=== PATIENT | female | born 1970 | race Caucasian/White ===

== ENCOUNTER 2021-02-13 15:13 | Emergency (ER) | payer OTHER, SELFPAY ==
--- NOTE | 2021-02-13 15:20 | ED.SKABFB ---
HPI - Skin/Abscess/Foreign Bdy General Chief complaint: Wound/Laceration Stated complaint: spider bite Time Seen by Provider: 02/13/21 15:20 Source: patient and RN notes reviewed Mode of arrival: ambulatory Limitations: no limitations History of Present Illness HPI narrative: 50-year-old female presents to the [facility] with pain and swelling to the dorsal aspect left ring finger. States she woke up yesterday morning with redness and pain, believes she was bit by a spider or some type of insect. Has full range of motion. Capillary refill under 2 seconds Related Data Allergies Allergy/AdvReac Type Severity Reaction Status Date / Time No Known Allergies Allergy Unknown Verified 07/02/19 11:41 No Known Allergies Allergy Uncoded 07/02/19 11:41 Review of Systems Review of Systems: All systems reviewed & are unremarkable except as noted in HPI and below Constitutional: Constitutional: Reports no additional constitutional complaints, Denies chills and Denies fever(s) Cardiovascular: Cardiovascular: Reports no additional cardiovascular complaints and Denies chest pain Respiratory: Respiratory: Reports no additional respiratory complaints, Denies cough and Denies dyspnea Musculoskeletal: Musculoskeletal: Reports as per HPI Comments: Left hand ring finger, tightness, has full range of motion. Sensation intact distal to infection with capillary refill under 2 seconds Integumentary/Breasts: Skin/Breast: Reports as per HPI, Reports erythema (Fourth finger left hand) and Denies rash Neurologic: Reports system reviewed and no additional complaints, except as documented, Denies dizziness, Denies headache(s), Denies focal weakness and Denies numbness Psychiatric: Psychiatric: Reports no additional psychiatric complaints PMFSH Comments At the time of my signature, I reviewed and agree with the nursing past medical, surgical, social, and family history. There is no relevant family history pertinent to the patient complaint. Exam Const: General: healthy appearing, no acute distress and alert Nutritional Appearance: well nourished Orientation/consciousness: patient oriented x3 Limitations: no limitations HENMT: Head: normal to inspection Chest: Chest palpation & inspection: normal inspection of the chest Resp: Effort & Inspection: normal respiratory effort and no use of accessory muscles Auscultation: clear to auscultation bilaterally, no crackles, no rales, no rhonchi and no wheezes Cardio: Rate: regular rate Rhythm: regular rhythm Back/Spine/Pelvis: Back: no CVA tenderness Neuro: General: patient oriented x3, moves all extremities, no meningeal signs and no focal motor deficits Speech: normal speech Gait exam (Neuro): Normal gait present Extrem: General: normal to inspection Hand/finger images: 1. Redness, swelling noted. Fluctuant center. Has full range of motion of the PIP and DIP joint. Capillary refill under 2 seconds. Psych: Appearance: grossly normal and well kempt Mental Status: mental status grossly normal Affect: normal affect Attitude: cooperative Course Course Emergency Course: Discharge instructions reviewed with patient, as well as provided in writing per nursing staff. The instructions also include specific and strict return/GO TO THE ER as well as f/u information. All questions have been answered, and the patient deny any further questions with discharge and discharge plan. Vital Signs Vital signs: Vital Signs Temperature 98.7 F 02/13/21 15:22 Pulse Rate 81 02/13/21 15:22 Respiratory Rate 16 02/13/21 15:22 Blood Pressure 161/102 H 02/13/21 15:22 Pulse Oximetry 100 02/13/21 15:22 Temperature 98.7 F 02/13/21 15:22 Pulse Rate 81 02/13/21 15:22 Respiratory Rate 16 02/13/21 15:22 Blood Pressure 161/102 H 02/13/21 15:22 Pulse Oximetry 100 02/13/21 15:22 Reviewed MDM - Skin/Abscess/Foreign Bdy Differential Diagnosis Differential diagnosis: Likely abscess
[2021-02-13 15:22] VITALS: BP 161/102; PULSE 81; RESP 16; TEMP 37.1; O2SAT 100
== END 2021-02-13 16:07 | disposition home or self-care (01) ==
PROVIDERS: Emergency Provider Nurse Practitioner; PCP Internal Medicine Gastroenterology
DX: L02.512 Cutaneous abscess of left hand (principal)
CPT/HCPCS: 26010; 87070; 87075; 87147; 87186; 87205; 99213; G0463

== ENCOUNTER 2021-02-15 13:54 | Emergency (ER) | payer OTHER, SELFPAY ==
--- NOTE | 2021-02-15 13:58 | PC.NURSE ---
pt states waiting room looks really full. I will come back later. Informed risks of leaving without being seen by MD. Verbalizes understanding.
== END 2021-02-15 14:00 | disposition left against medical advice (07) ==
PROVIDERS: PCP Internal Medicine Gastroenterology
DX: Z53.21 Procedure and treatment not carried out due to patient leaving prior to being seen by health care provider (principal)
CPT/HCPCS: 99199

== ENCOUNTER 2021-05-08 16:40 | Emergency (ER) | payer OTHER, SELFPAY ==
[2021-05-08] VITALS (8 sets, daily range): BP systolic 116–151; BP diastolic 70–105; PULSE 87–116; RESP 17–33; TEMP 36.2–36.8; O2SAT 95–100
--- NOTE | ~2021-05-08 | XR_ITS ---
EXAMINATION: XR chest 2V DATE: 05/08/2021 19:39 INDICATION: Shortness of breath. COVID-19 pneumonia. TECHNIQUE: Frontal and lateral views of the chest were obtained. COMPARISON: Chest 2 views 10/24/2018, CT abdomen and pelvis 06/12/2018 FINDINGS: There are patchy airspace opacities in the mid and lower lung zones. No pleural effusion or pneumothorax. The heart size is normal. There is a moderate-sized hiatal hernia. IMPRESSION: 1. Patchy airspace opacities in the mid and lower lung zones, consistent with COVID-19 pneumonia. 2. Moderate-sized hiatal hernia. Reviewed, dictated and finalized at location A. IMPRESSION: 1. Patchy airspace opacities in the mid and lower lung zones, consistent with C OVID-19 pneumonia. 2. Moderate-sized hiatal hernia.
--- NOTE | ~2021-05-08 | CT_ITS ---
EXAMINATION: CT abdomen pelvis wo con DATE: 05/08/2021 22:24 INDICATION: Low abdominal pain. TECHNIQUE: Computed tomography (CT) of the abdomen and pelvis was performed without intravenous contr ast. Automated exposure control and iterative reconstruction technique were employed. The dose-length product was 993.06 mGy-cm. COMPARISON: CT abdomen pelvis 06/12/18 FINDINGS: The visualized portions of the lung bases demonstrate groundglass opacities and crazy pavin g in the lower lobes, right middle lobe, and lingula, consistent with COVID-19 pneumonia. No pleural effusion. The heart size is normal. No pericardial effusion. There is a moderate-sized sliding hiatal hernia. There is diffuse hepatic steatosis. The gallbladder, spleen, pancreas, adrenal glands, and k idneys are normal. There is no urolithiasis. There is diverticulosis of the colon without evidence of diverticulitis. There are no dilated loops of bowel. The appendix is normal. There are no pathologic ally enlarged lymph nodes. There is no free intraperitoneal fluid. 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 IMPRESSION: 1. Multifocal lung disease, consistent with COVID-19 pneumonia. 2. Moderate-sized sliding hiatal hernia. 3. Diffuse hepatic steatosis. Reviewed, dictated and finalized at location A.
--- NOTE | 2021-05-08 17:04 | ECG_ITS ---
Measurements Intervals [place] Rate: 118 P: 40 UT: 134 QRS: -23 QRSD: 81 T: 15 QT: 340 QTc: 477 Interpretive Statements SINUS TACHYCARDIA POSSIBLE LEFT ATRIAL ENLARGEMENT INCOMPLETE RIGHT BUNDLE BRANCH BLOCK LOW QRS VOLTAGE IN PRECORDIAL LEADS INFERIOR INFARCT, AGE INDETERMINATE ANTEROSEPTAL INFARCT, AGE INDETERMINATE BORDERLINE ST-T WAVE ABNORMALITY- ANTEROLAT/HIGH LAT LEADS BASELINE WANDER- I, II, AVR, AVL, AVF ABNORMAL ECG Electronically Signed On 05-08-2021 19:03:50 CDT by Robert Huffman D.O.
[2021-05-08 17:20] LABS: Basophils Percent Auto 0.2 % (0.2-1.2); Hematocrit 50.9 % (37.0-47.0); Immature Granulocyte Absolute 0.04 K/mm3 (0.00-0.031); Immature Granulocyte Percent A 0.6 % (0-0.5); Lymphocytes Absolute Auto 1.41 K/mm3 (0.9-3.2); Lymphocytes Percent Auto 22.3 % (18.3-44.2); Mean Corpuscular HGB Conc 33.4 g/dl (32-36); Mean Corpuscular Hemoglobin 32.8 pg (26-34); Mean Corpuscular Volume 98.3 fl (80-100); Mean Platelet Volume 12.2 fl (7.4-10.4); Monocytes Absolute Auto 0.1 K/mm3 (0.1-0.6); Monocytes Percent Auto 1.6 % (2.6-8.5); Neutrophils Absolute Auto 4.8 K/mm3 (1.3-6.7); Neutrophils Percent Auto 75.3 % (45.5-73.1); Platelet Count Result 148 k/mm3 (150-375); Red Blood Count 5.18 M/mm3 (4.2-5.4); Red Cell Distribution Width 14.5 % (11.5-14.5); White Blood Count 6.3 K/mm3 (4.5-10.0)
[2021-05-08 17:30] LABS: Anion Gap 16 mmol/L (8-16); Blood Urea Nitrogen 24 mg/dL (7-17); Calcium 8.4 mg/dL (8.4-10.2); Carbon Dioxide 21 mmol/L (22-30); Chloride 102 mmol/L (98-107); Estimated CRCL calculation 38 ml/min; Estimated Glomerular Filt Rate 30; Glucose 126 mg/dL (65-110); Potassium 3.1 mmol/L (3.4-5.0); Sodium 139 mmol/L (137-145)
[2021-05-08 17:40] LABS: Atypical Lymphocytes Present; Platelet Estimate Adequate (Adequate)
[2021-05-08] MEDS: SODIUM CHLORIDE 0.9% IV 1,000 ML 999 ML IV CONT ×2 (21:58→22:01)
[2021-05-08] MEDS: MORPHINE SULFATE (*CRX) 4 MG/ML INJ IV PUSH (22:01)
[2021-05-08] MEDS: POTASSIUM CHLORIDE 20 MEQ TABLET 40 MEQ PO (22:02)
[2021-05-08] MEDS: ONDANSETRON INJ 4 MG/2 ML VIAL IV PUSH (22:02)
--- NOTE | 2021-05-08 23:20 | PC.NURSE ---
Pt requesting additional pain meds, ERP aware.
[2021-05-09] VITALS (7 sets, daily range): BP systolic 129–146; BP diastolic 88–105; PULSE 85–94; RESP 16–32; O2SAT 93–100
[2021-05-09] MEDS: KETOROLAC 30 MG/ML VIAL (*BKC) IV PUSH (00:19)
--- NOTE | 2021-05-09 00:49 | PC.NURSE ---
PO challenge completed per ERP VRBO. Pt able to tolerate food/drink PO, but is feeling very nauseous at this time.
[2021-05-09 01:05] LABS: Anion Gap 9 mmol/L (8-16); Blood Urea Nitrogen 23 mg/dL (7-17); Calcium 7.6 mg/dL (8.4-10.2); Carbon Dioxide 21 mmol/L (22-30); Chloride 108 mmol/L (98-107); Estimated CRCL calculation 52 ml/min; Estimated Glomerular Filt Rate 44; Glucose 102 mg/dL (65-110); Potassium 3.5 mmol/L (3.4-5.0); Sodium 138 mmol/L (137-145)
[2021-05-09] MEDS: SODIUM CHLORIDE 0.9% IV 1,000 ML 999 ML IV CONT (01:23)
--- NOTE | 2021-05-09 02:17 | PC.NURSE ---
Pt tolerating bairon crackers and berta mist well at this time.
--- NOTE | 2021-05-09 02:26 | ED.SOB ---
HPI - SOB/Dyspnea General Chief Complaint: Shortness of Breath/Dyspnea Stated Complaint: diff breathing/nausea/covid + Time Seen by Provider: 05/08/21 21:17 History of Present Illness HPI Narrative: Patient is a 50-year-old female who presents ER with multiple complaints related to her COVID-19 infection. First diagnosed 1 week ago. Since then she has had progressive fatigue. More importantly she has had a lot of nausea and vomiting and has not been able to eat for last 4 days. She has been having lower abdominal cramping along with this. Patient reports chest pain neurologic nursing staff not to this physician. She denies any chest pain at this time. Has not tried any medications to help her with her discomfort. Patient does endorse shortness of breath with movement and also has frequent nonproductive cough. Related Data Allergies Allergy/AdvReac Type Severity Reaction Status Date / Time No Known Allergies Allergy Unknown Verified 07/02/19 11:41 No Known Allergies Allergy Uncoded 07/02/19 11:41 Review of Systems Review of Systems: All systems reviewed & are unremarkable except as noted in HPI and below Constitutional: Constitutional: Reports chills, Reports fatigue, Reports fever(s) and Reports weakness ENT: Denies nasal congestion and Denies sore throat Cardiovascular: Cardiovascular: Denies chest pain, Denies rapid heart rate and Denies radiating jaw, neck or arm pain Respiratory: Respiratory: Reports cough, Reports dyspnea and Denies wheezing Gastrointestinal: Gastrointestinal: Reports abdominal pain, Denies constipation, Denies diarrhea, Reports nausea and Reports vomiting Genitourinary: Genitourinary: Denies nocturia, Denies dysuria and Denies flank pain Neurologic: Denies focal weakness and Denies numbness PMFSH Past Medical History Medical History (Updated 05/09/21 @ 02:34 by Woodrow Barney MD) GERD (gastroesophageal reflux disease) Surgical History Surgical History (Updated 05/09/21 @ 02:31 by Woodrow Barney MD) History of tubal ligation Exam Narrative: GENERAL: Uncomfortable-appearing, well-nourished, and in no acute distress. HEAD: Normocephalic, atraumatic. CHEST: Clear to auscultation. No respiratory distress. HEART: Regular rate and rhythm. Normal peripheral pulses. ABDOMEN: Soft, bilateral lower quadrant tenderness without guarding, nondistended, normal active bowel sounds. EXTREMITIES: Normal range of motion. No edema. SKIN: Warm, dry, no rash. NEURO: Alert and oriented x3. PSYCH: Normal mood and affect. Course Course Emergency Course: Patient hydrated aggressively. Potassium replaced. Patient given antiemetics and has been able to tolerate oral fluids and food. Discharge home. Vital Signs Vital signs: Vital Signs Temperature 97.1 F L 05/08/21 16:58 Pulse Rate 116 H 05/08/21 16:58 Respiratory Rate 20 05/08/21 16:58 Blood Pressure 116/70 05/08/21 16:58 Pulse Oximetry 95 05/08/21 16:58 Temperature 98.2 F 05/08/21 21:04 Pulse Rate 94 05/09/21 01:23 Respiratory Rate 16 05/09/21 01:23 Blood Pressure 138/103 H 05/09/21 01:23 Pulse Oximetry 97 05/09/21 01:23 MDM - SOB/Dyspnea Lab Data Result diagrams: 05/08/21 17:09 05/09/21 00:39 Labs: Lab Results 05/08/21 05/08/21 05/09/21 Range/Units 17:09 17:09 00:39 WBC 6.3 (4.5-10.0) K/mm3 RBC 5.18 (4.2-5.4) M/mm3 Hgb 17.0 H (12.0-15.0) g/dL Hct 50.9 H (37.0-47.0) % MCV 98.3 (80-100) fl MCH 32.8 (26-34) pg MCHC 33.4 (32-36) g/dl RDW 14.5 (11.5-14.5) % Plt Count 148 L (150-375) k/mm3 MPV 12.2 H (7.4-10.4) fl Immature Gran % (Auto) 0.6 H (0-0.5) % Neut % (Auto) 75.3 H (45.5-73.1) % Lymph % (Auto) 22.3 (18.3-44.2) % [place] % (Auto) 1.6 L (2.6-8.5) % Eos % (Auto) 0.0 (0-4.4) % Baso % (Auto) 0.2 (0.2-1.2) % Lymph # (Auto) 1.41 (0.9-3.2) K/mm3 [place] # (Auto) 0.1 (0.1-0.6)
== END 2021-05-09 02:50 | disposition home or self-care (01) ==
PROVIDERS: Family Medicine; Emergency Provider Emergency Medicine; PCP Internal Medicine Gastroenterology
DX: U07.1 COVID-19 (principal); J12.82 Pneumonia due to coronavirus disease 2019
CPT/HCPCS: 36415; 71046; 74176; 80048; 81025; 85025; 93005; 96361; 96374; 96375; 99284; A9270; J1885; J2270; J2405; J7030

== ENCOUNTER 2021-05-13 09:32 | Inpatient (IN) | payer OTHER, SELFPAY ==
[2021-05-13] VITALS (20 sets, daily range): BP systolic 115–151; BP diastolic 68–104; PULSE 54–125; RESP 18–42; TEMP 36.6–37; O2SAT 48–100; BMI 32.1
--- NOTE | ~2021-05-13 | XR_ITS ---
EXAMINATION: XR chest 1V portable DATE: 05/13/2021 10:10 INDICATION: COVID positive presenting with 2 weeks of increasing shortness of breath TECHNIQUE: frontal view of the chest was obtained. COMPARISON: Chest radiograph and CT abdomen and pelvis dated 05/08/2021 FINDINGS: Increasing patchy bilateral airspace opacities relatively sparing the apices of lungs consistent with worsening COVID pneumonia. No pleural effusion or pneumothorax. Mediastinal silhouette is normal. Mo derate-sized hiatal hernia. IMPRESSION: 1. Increasing bilateral lung disease relatively sparing the apices consistent with worsening COVID pn eumonia. 2. Moderate-sized hiatal hernia. Reviewed, dictated and finalized at location A. IMPRESSION: 1. Increasing bilateral lung disease relatively sparing the apices consistent w ith worsening COVID pneumonia. 2. Moderate-sized hiatal hernia.
--- NOTE | ~2021-05-13 | XR_ITS ---
EXAMINATION: XR chest 1V portable DATE: 05/17/2021 09:16 INDICATION: COVID-19 pneumonia. TECHNIQUE: A single frontal view of the chest was obtained. COMPARISON: Chest single view 05/16/2021, chest CT 05/13/2021 FINDINGS: There are airspace and interstitial opacities in all lung zones bilaterally with a peripher al predominance with relative sparing of the lung apices. No pleural effusion or pneumothorax. The he art size is normal. The endotracheal tube tip is 4.7 cm above the chelsea. The nasogastric tube tip is in the stomach. A right upper extremity peripherally inserted central venous catheter (PICC) is seen with tip in the superior vena cava. IMPRESSION: 1. Stable diffuse lung disease, consistent with COVID-19 pneumonia. Reviewed, dictated and finalized at location A.
--- NOTE | ~2021-05-13 | XR_ITS ---
EXAMINATION: XR chest 1V portable EXAM DATE: 05/19/2021 04:22 INDICATION: CODE BLUE. Respiratory failure. TECHNIQUE: Portable AP frontal chest x-ray was obtained. Comparison is made to prior examination from 05/18/2021. FINDINGS: Right-sided chest tube, endotracheal tube, feeding tube, right-sided PICC line are in expe cted positions. Cannot identify any pleural reflection, pneumothorax on this exam. There is progressi on of the right lateral thoracic chest wall gas likely from the chest tube site. Patient rotated to the right. There is diffuse bilateral pneumonia and edema, mild interval progressi on. Probable small pleural effusions. The cardiomediastinal silhouette is prominent but magnified on this AP technique. The bones and soft tissues are unremarkable. IMPRESSION: 1. Line and tube(s) in position. 2. Extensive bilateral pneumonia/edema, mild progression. 3. Increase in right lateral subcutaneous gas. Reviewed, dictated and finalized at location A.
--- NOTE | ~2021-05-13 | XR_ITS ---
EXAMINATION: XR chest PICC line EXAM DATE: 05/14/2021 14:54 INDICATION: picc placement . TECHNIQUE: Portable AP frontal chest x-ray was obtained. Comparison is made to prior examination from earlier same day. FINDINGS: Endotracheal tube and feeding tube are in position. There is a new right-sided PICC line, t ip at or immediately above to the cavoatrial junction, adequate position. Diffuse bilateral airspace disease, edema and/or infection. Possible small left pleural effusion. T here is no pneumothorax suspected. Cardiomediastinal silhouette is normal. The bones and soft tiss ues are unremarkable. IMPRESSION: 1. Tubes, line in position. 2. Diffuse COVID pneumonia unchanged. Reviewed, dictated and finalized at location A.
--- NOTE | ~2021-05-13 | XR_ITS ---
EXAMINATION: XR chest 1V portable EXAM DATE: 05/18/2021 10:21 INDICATION: Chest tube placement . COVID pneumonia. Respiratory failure. TECHNIQUE: Portable AP frontal chest x-ray was obtained. Comparison is made to prior examination from earlier same day. FINDINGS: Interval insertion of a right-sided chest tube, improvement in the pneumothorax. There is still small right apical pneumothorax identified. There is right-sided PICC line. Endotracheal tube t ip is 5-6 centimeters above the chelsea. There is a nasogastric tube seen with tip collimated off the study, but below the left hemidiaphragm. Again there is moderate amount of bilateral COVID pneumonia There are no sizable pleural effusions. There is no pneumothorax suspected. The cardiomediastinal silhouette is prominent but magnified o n this AP technique. The bones and soft tissues are unremarkable. There is no significant interval change compared to prior exam. IMPRESSION: 1. Line and tube(s) in position. 2. Moderate COVID pneumonia. 3. Small right apical pneumothorax. Reviewed, dictated and finalized at location A.
--- NOTE | ~2021-05-13 | XR_ITS ---
EXAMINATION: XR chest 1V portable DATE: 05/15/2021 05:39 INDICATION: Acute hypoxia respiratory failure. Pneumonia. TECHNIQUE: A single frontal view of the chest was obtained. COMPARISON: Chest single view 05/14/2021, chest CT 05/13/2021 FINDINGS: There are airspace opacities in all lung zones bilaterally. No pleural effusion or pneumoth orax. The heart size is normal. The nasogastric tube tip is in the stomach. A right upper extremity p eripherally inserted central venous catheter (PICC) is seen with tip in the proximal right atrium. Th e endotracheal tube tip is 3.9 cm above the chelsea. IMPRESSION: 1. Worsened diffuse lung disease, consistent with COVID-19 pneumonia. Reviewed, dictated and finalized at location A.
--- NOTE | ~2021-05-13 | XR_ITS ---
EXAMINATION: XR abdomen NG/feed tube insert EXAM DATE: 05/14/2021 12:00 INDICATION: og tube insertion . TECHNIQUE: Frontal projection(s) of the abdomen for interpretation. There is no prior study for jolie zhu. FINDINGS: Feeding tube tip and side-port project over gastric bubble, expected position. Nonobstruct severo bowel gas pattern. There is diffuse bilateral airspace disease. IMPRESSION: Feeding tube in position. Reviewed, dictated and finalized at location A. IMPRESSION: Feeding tube in position.
--- NOTE | ~2021-05-13 | XR_ITS ---
EXAMINATION: XR chest ET placement EXAM DATE: 05/14/2021 12:01 INDICATION: Respiratory failure. COVID positive. TECHNIQUE: Portable AP frontal chest x-ray was obtained. Comparison is made to prior examination from earlier same date. FINDINGS: Endotracheal tube and nasogastric tube have been placed. Both appear in expected position. Diffuse bilateral airspace disease, edema and/or infection. There are no sizable pleural effusions. There is no pneumothorax suspected. The cardiomediastinal silhouette is prominent but magnified o n this AP technique. The bones and soft tissues are unremarkable. IMPRESSION: 1. Tubes in position. 2. Diffuse COVID pneumonia unchanged. Reviewed, dictated and finalized at location A.
--- NOTE | ~2021-05-13 | XR_ITS ---
EXAMINATION: XR chest 1V portable EXAM DATE: 05/18/2021 05:39 INDICATION: Acute hypoxic respiratory failure, pneumonia. TECHNIQUE: Portable AP frontal chest x-ray was obtained. Comparison is made to prior examination from 05/17. FINDINGS: Endotracheal tube tip is 5 centimeters above the chelsea. There is a nasogastric tube seen with tip collimated off the study, but below the left hemidiaphragm. There is a right-sided PICC line . There is moderate amount of bilateral ill-defined acute airspace disease consistent with COVID pneumo rowdy. There are no sizable pleural effusions. Interval development of small to moderate-sized right -sided pneumothorax, about 2 cm between the pleural reflections at the lung apex. This finding has be en indicated, marked on the examination for review, clinical correlation. The cardiomediastinal silh ouette is prominent but magnified on this AP technique. The bones and soft tissues are unremarkable . Airspace disease appears unchanged compared to yesterday. IMPRESSION: 1. Line and tube(s) in position. 2. Interval development of small to moderate right pneumothorax. 3. COVID pneumonia unchanged. I discussed pneumothorax with ICU nurse Susu at 05/18/2021 07:33 CDT. Reviewed, dictated and finalized at location A. IMPRESSION: 1. Line and tube(s) in position. 2. Interval development of small to moderate right pneumothorax. 3. COVID pneumonia unchanged. I discussed pneumothorax with ICU nurse Ssuu at 05/18/2021 07:33 CDT.
--- NOTE | ~2021-05-13 | US_ITS ---
EXAMINATION: US abdomen limited DATE: 05/14/2021 12:28 INDICATION: Abnormal liver function tests. TECHNIQUE: Multiple grayscale and Doppler ultrasound images of the abdomen were obtained. COMPARISON: CT abdomen and pelvis 05/08/2021 FINDINGS: The visualized portions of the head, body, and tail of the pancreas are normal. The liver i s normal without focal lesion. No liver surface nodularity. There is normal flow in main portal vein. The gallbladder is normal in size. No gallstones or gallbladder wall thickening. The common duct is normal and measures 4 mm. Right kidney is normal. IMPRESSION: 1. No etiology for abnormal liver function tests. Reviewed, dictated and finalized at location A.
--- NOTE | ~2021-05-13 | XR_ITS ---
EXAMINATION: XR chest 1V portable DATE: 05/16/2021 05:45 INDICATION: Acute hypoxic respiratory failure. TECHNIQUE: A single frontal view of the chest was obtained. COMPARISON: Chest single view 05/15/2021 FINDINGS: There are airspace opacities in all lung zones bilaterally. No pleural effusion or pneumoth orax. The heart size is normal. The endotracheal tube tip is 4.2 cm above the chelsea. The nasogastric tube tip is in the stomach. A right upper extremity peripherally inserted central venous catheter (P ICC) is seen with tip in the proximal right atrium. IMPRESSION: 1. Diffuse lung disease with improvement in right upper lobe, consistent with COVID-19 pneumonia. Reviewed, dictated and finalized at location A. IMPRESSION: 1. Diffuse lung disease with improvement in right upper lobe, consistent with C OVID-19 pneumonia.
--- NOTE | ~2021-05-13 | CT_ITS ---
EXAMINATION: CTA chest PE protocol DATE: 05/13/2021 12:01 INDICATION: Shortness of breath. COVID positive. Elevated d-dimer. TECHNIQUE: Computed tomography (CT) pulmonary angiogram of the chest was performed with 100 mL Omnipa que-350 intravenous contrast. Additional 3D reconstructions utilizing coronal maximum intensity proje ction (MIP) were performed. Automated exposure control and iterative reconstruction technique were em ployed. The dose-length product was 413.81 mGy-cm. COMPARISON: None FINDINGS: Excellent contrast opacification of the pulmonary arteries. There is moderate streak artifact from de nse contrast in the superior vena cava and right atrium. Mild to moderate scattered respiratory motio n artifact. Together this decreases sensitivity in the segmental and more prominently in the subsegme ntal pulmonary arteries. No definite pulmonary embolism identified. There is extensive groundglass op acity throughout both lungs consistent with COVID pneumonia. Heart size is normal. No pericardial eff usion. Thoracic aorta is normal in caliber with no dissection. Moderate-sized sliding-type hiatal her rowdy. No pathologically enlarged thoracic lymphadenopathy. Bones are unremarkable. IMPRESSION: 1. No pulmonary embolism. Sensitivity decreased in the segmental and subsegmental pulmonary arteries due to combination of streak and motion artifact. 2. Extensive groundglass opacities throughout both lungs consistent with COVID pneumonia. 3. Moderate-sized sliding-type hiatal hernia. Reviewed, dictated and finalized at location A. IMPRESSION: 1. No pulmonary embolism. Sensitivity decreased in the segmental and subsegment al pulmonary arteries due to combination of streak and motion artifact. 2. Extensive groundglass opacities throughout both lungs consistent with COVID pneumonia. 3. Moderate-sized sliding-type hiatal hernia.
--- NOTE | ~2021-05-13 | XR_ITS ---
EXAMINATION: XR chest-chest tube insert/pos INDICATION: Chest tube placement TECHNIQUE: Portable AP chest at 1157 hours COMPARISON: 05/19/2021 FINDINGS: The right-sided chest tube appears unchanged in position. A large volume of gas is present in the right lateral chest wall which now tracks into the supraclavicular space. There is a small rig ht apical pneumothorax. Patchy opacities persist throughout all lung zones without significant change . IMPRESSION: 1. Small right apical pneumothorax. 2. Right-sided chest tube grossly unchanged in position. 3. Subcutaneous emphysema in the right lateral chest wall now tracking into the supraclavicular space . 4. Stable diffuse lung disease, consistent with pneumonia and/or pulmonary edema and/or acute respira tory distress syndrome (ARDS). Reviewed, dictated and finalized at location A. IMPRESSION: 1. Small right apical pneumothorax. 2. Right-sided chest tube grossly unchanged in position. 3. Subcutaneous emphysema in the right lateral chest wall now tracking into the supraclavicular space. 4. Stable diffuse lung disease, consistent with pneumonia and/or pulmonary goldie a and/or acute respiratory distress syndrome (ARDS).
--- NOTE | ~2021-05-13 | XR_ITS ---
XR chest 1V portable 05/18/2021 19:54 Indication: Increased oxygen requirement Procedure: AP portable chest Comparison: Comparison to multiple prior studies sequentially, with oldest reviewed study dated 05/2021. Findings: No pneumothorax identified. Right basilar chest tube present. PICC line tip in the SVC. The re is been progression of bilateral airspace disease, right greater than left. Small right pleural ef fusion. Endotracheal and NG tubes are stable. Impression: 1: Interval progression of bilateral airspace disease, right greater than left, compatible with pneum onia. Reviewed, dictated and finalized at location A. Impression: 1: Interval progression of bilateral airspace disease, right greater than left, compatible with pneumonia.
--- NOTE | ~2021-05-13 | XR_ITS ---
EXAMINATION: XR chest 1V portable EXAM DATE: 05/18/2021 22:42 INDICATION: Hypoxia. TECHNIQUE: Portable AP frontal chest x-ray was obtained. Comparison is made to prior examination from earlier on 05/18. FINDINGS: Patient rotated to the right. Right-sided PICC line, endotracheal tube, feeding tube, right -sided chest tube are in position. Some increase in amount of right lateral thoracic subcutaneous emphysema related to the chest tube. C annot identify any definite pleural reflection on this examination. Skin fold overlying the middle as pect of the exam. Diffuse bilateral airspace disease, mild interval progression. The cardiomediasti nal silhouette is prominent but magnified on this AP technique. The bones and soft tissues are unre markable. IMPRESSION: 1. Line and tube(s) in position. 2. Diffuse bilateral pneumonia and/or edema, mild progression. Reviewed, dictated and finalized at location A.
--- NOTE | ~2021-05-13 | XR_ITS ---
EXAMINATION: XR chest 1V portable DATE: 05/14/2021 05:46 INDICATION: Acute hypoxic respiratory failure. COVID-19 pneumonia. TECHNIQUE: A single frontal view of the chest was obtained. COMPARISON: Chest single view 05/13/2021, chest CT 05/13/2021 FINDINGS: There are airspace and interstitial opacities throughout the lungs bilaterally. No pleural effusion or pneumothorax. The heart size is normal. IMPRESSION: 1. Diffuse lung disease with mild worsening, consistent with COVID-19 pneumonia. Reviewed, dictated and finalized at location A. IMPRESSION: 1. Diffuse lung disease with mild worsening, consistent with COVID-19 pneumonia .
--- NOTE | 2021-05-13 09:37 | ECG_ITS ---
Measurements Intervals [place] Rate: 120 P: 21 NM: 136 QRS: -18 QRSD: 79 T: -15 QT: 339 QTc: 479 Interpretive Statements SINUS TACHYCARDIA LOW QRS VOLTAGE IN PRECORDIAL LEADS BORDERLINE R WAVE PROGRESSION, ANTERIOR LEADS INFERIOR INFARCT, AGE INDETERMINATE BORDERLINE ST-T WAVE ABNORMALITY- ANTERIOR LEADS BASELINE ARTIFACT- AVR, AVL, AVF, V1-V4 ABNORMAL ECG Electronically Signed On 05-13-2021 17:11:10 CDT by Robert Huffman D.O.
[2021-05-13 09:48] LABS: Alveolar/Arterial O2 Gradient 492.8 mmHg; Base Excess ABG -2.5 mEq/l (+/-2.0); Fractional Inspired Oxygen 80 %; HCO3 ABG 20.1 mEq/l (22.0-26.0); Oxygen Content ABG 18.3 %vol (16.0-22.0); Oxyhemoglobin 83.1 % THb (90.0-100.0); PCO2 ABG 29.5 mmHg (35.0-45.0); PO2 FiO2 Ratio Arterial Blood 0.58 %; Total Hemoglobin 15.7 g/dL (12.0-18.0); pH ABG 7.451 (7.350-7.450)
[2021-05-13 09:49] LABS: PO2 ABG 46.6 mmHg (80.0-100.0)
[2021-05-13 09:50] LABS: Device NON-REBREATHER MASK; Modified Allen's Test Pass; Oxygen Saturation ABG 85.2 % (95.0-100.0); Site Drawn RIGHT RADIAL
[2021-05-13 10:01] LABS: Basophils Percent Auto 0.3 % (0.2-1.2); Eosinophils Percent Auto 0.1 % (0-4.4); Hematocrit 46.9 % (37.0-47.0); Hemoglobin 15.4 g/dL (12.0-15.0); Immature Granulocyte Absolute 0.07 K/mm3 (0.00-0.031); Lymphocytes Absolute Auto 1.51 K/mm3 (0.9-3.2); Lymphocytes Percent Auto 20.7 % (18.3-44.2); Mean Corpuscular HGB Conc 32.8 g/dl (32-36); Mean Corpuscular Hemoglobin 32.5 pg (26-34); Mean Corpuscular Volume 98.9 fl (80-100); Mean Platelet Volume 10.6 fl (7.4-10.4); Monocytes Absolute Auto 0.6 K/mm3 (0.1-0.6); Monocytes Percent Auto 8.4 % (2.6-8.5); Neutrophils Absolute Auto 5.1 K/mm3 (1.3-6.7); Neutrophils Percent Auto 69.5 % (45.5-73.1); Platelet Count Result 317 k/mm3 (150-375); Red Blood Count 4.74 M/mm3 (4.2-5.4); Red Cell Distribution Width 14.7 % (11.5-14.5); White Blood Count 7.3 K/mm3 (4.5-10.0)
--- NOTE | 2021-05-13 10:10 | ED.GENADULT ---
HPI - General Adult General Chief complaint: Shortness of Breath/Dyspnea Stated complaint: SOB/PAIN Time Seen by Provider: 05/13/21 09:37 Source: patient History of Present Illness HPI narrative: Patient is a 50 y/o female complaining of severe shortness of breath for last 5 days. She states that activity makes her SOB worse. She has a cough, but no fever. She tested positive for COVID the Thursday before (12 days ago). However, she was not SOB when she initially tested positive. She has diarrhea, nausea and feels very week. She also has generalized body ache. EMS reports pulse ox of 46% on RA. She was placed on NRB. She has not been vaccinated against COVID. Related Data Home Medications Medication Instructions Recorded Confirmed benzonatate 100 mg PO TID PRN 05/13/21 05/13/21 Allergies Allergy/AdvReac Type Severity Reaction Status Date / Time No Known Allergies Allergy Unknown Verified 05/13/21 09:44 Review of Systems Constitutional: Constitutional: Denies chills, Denies fever(s), Denies headache(s) and Reports weakness Eyes: Eyes: Denies blurry vision ENT: Denies headache(s) and Denies neck pain Cardiovascular: Cardiovascular: Denies chest pain and Reports dyspnea Respiratory: Respiratory: Reports cough and Reports dyspnea Gastrointestinal: Gastrointestinal: Denies abdominal pain, Reports diarrhea, Reports nausea and Denies vomiting Genitourinary: Genitourinary: Denies hematuria and Denies dysuria Musculoskeletal: Musculoskeletal: Reports as per HPI, Denies back pain, Reports myalgias and Denies neck pain Neurologic: Denies headache(s) and Reports weakness [facility] Past Medical History Medical History (Updated 05/13/21 @ 14:45 by Jayleen Wiggins MD) Gastroesophageal reflux disease Hiatal hernia Surgical History Surgical History (Updated 05/13/21 @ 13:16 by Magalis Ward PA-C) History of repair of laceration (01/24/09) Left external auditory canal and tragus, about 4 cm. History of tubal ligation Family History Family History Other Acute myocardial infarction Cancer Diabetes mellitus Social History Social History (Updated 05/13/21 @ 13:17 by Magalis Ward PA-C) Social History: The patient lives in [place]. She has 6 children. Smoking status: Never smoker Alcohol intake: never Substance use: never Spiritual care concerns: No Exam Const: General: acute distress and ill appearing Orientation/consciousness: oriented to person, oriented to place, oriented to time and patient oriented x3 HENMT: Head: normocephalic Ears: external ears normal General nose exam: Normal external nose present Eyes: General: appearance normal, both eyes and all related structures Conjunctivae: conjunctivae normal Neck: Neck: normal visual inspection and full ROM Chest: Chest palpation & inspection: normal inspection of the chest and no tenderness Resp: Effort & Inspection: able to speak in complete sentences and tachypneic Cardio: Rate: tachycardic Rhythm: regular rhythm GI: GI Palp: No abdominal tenderness and Yes Soft to palpation Skin: General skin exam: normal color and turgor normal Neuro: General: oriented to person, oriented to place, oriented to time and patient oriented x3 Cognition (Neuro): normal cognition Extrem: General: normal to inspection, full ROM and no pedal edema Psych: Appearance: grossly normal Mental Status: mental status grossly normal Affect: normal affect Course Consultations Consultation #1: Discussed with Dr. Chen, who agrees to admit Date: 05/13/21 Time: 12:06 Consultation #2: Discussed with Dr. Bassett, who agrees to consult. Date: 05/13/21 Time: 12:20 Vital Signs Vital signs: Vital Signs Temperature 36.6 C 05/13/21 09:31 Pulse Rate 125 H 05/13/21 09:31 Respiratory Rate 30 H 05/13/21 09:31 Blood Pressure 139/94 H 05/13/21 09:31 Pulse Oximetry 48 L 0
[2021-05-13] MEDS: DEXAMETHASONE SOD PHOS INJ 4 MG/ML VIAL 6 MG IV PUSH (10:12)
[2021-05-13 10:13] LABS: Alanine Aminotransferase 204 U/L (4-35); Albumin Level 3.7 g/dL (3.5-5.1); Alkaline Phosphatase 573 U/L (38-126); Anion Gap 13 mmol/L (8-16); Aspartate Amino Transferase 127 U/L (14-36); Bilirubin,Total 0.9 mg/dL (0.2-1.3); Blood Urea Nitrogen 13 mg/dL (7-17); Calcium 8.8 mg/dL (8.4-10.2); Carbon Dioxide 22 mmol/L (22-30); Chloride 105 mmol/L (98-107); Estimated CRCL calculation 94 ml/min; Estimated Glomerular Filt Rate > 60; Glucose 108 mg/dL (65-110); Potassium 3.6 mmol/L (3.4-5.0); Sodium 140 mmol/L (137-145)
[2021-05-13 10:18] LABS: D Dimer 0.99 ug/mL (<0.48)
[2021-05-13 10:54] LABS: INR 2.2; Prothrombin Time 23.9 Seconds (11.1-14.7)
[2021-05-13 11:04] LABS: Lactic Acid Reflex 1.4 mmol/L (0.7-2.1)
[2021-05-13] MEDS: REMDESIVIR 200 MG/NS 250 ML 200 MG/250 ML BAG 250 MG IVPB (11:31)
--- NOTE | 2021-05-13 13:00 | PM.IMHP ---
H&P: HPI History of Present Illness Date/Time: 05/13/21 13:00 Chief Complaint: Shortness of breath. Narrative: This is a 50-year-old female without significant medical history presented to the emergency department earlier today via EMS from home for evaluation of shortness of breath. She tested positive for COVID 12 days ago on 05/01/2021 and it is noted that she was seen in the emergency department on 05/08/2021 with nausea, vomiting, and poor oral intake as well as mild shortness of breath. Imaging at that time demonstrated multifocal lung disease consistent with COVID 19 pneumonia. She was aggressively hydrated and with supportive care she was able to be discharged home in stable condition having been able to tolerate an oral diet. She was without an oxygen requirement at that time. Unfortunately over the last 5 days she has developed progressive shortness of breath even with minimal activity and she continues to have nausea, diarrhea, body aches, and profound weakness. Her breathing was especially bad this morning and on EMS arrival her SpO2 was reportedly 48% on room air. CTA of the chest done in the emergency department showed no pulmonary embolism but did note extensive ground-glass opacities throughout both lungs consistent with COVID pneumonia. At the time my evaluation she is maxed on Airvo and is on a non-rebreather. She was having difficulties in the prone position but is able to tolerate lying semi prone on her left side. The patient did not receive a COVID vaccination. Review of Systems Review of Systems: Twelve systems were reviewed with pertinent positives and negatives as per HPI. Except as documented, all other systems were reviewed and are negative. [facility] Past Medical History Medical History Gastroesophageal reflux disease Hiatal hernia Surgical History Surgical History History of repair of laceration (01/24/09) Left external auditory canal and tragus, about 4 cm. History of tubal ligation Family History Family History Other Acute myocardial infarction Cancer Diabetes mellitus Social History Social History (Updated 05/13/21 @ 21:54 by Magalis Ward PA-C) Social History: Surrogate decision maker: Rhonda Wolff, mother. Code status: Full code. Smoking status: Never smoker Alcohol intake: never Substance use: never Additional living arrangements comments: The patient lives in [place] with her children. Additional occupation/education comments: Works at a local [employer]. Meds Home Medications and Allergies Home Medications Medication Instructions Recorded Confirmed Type benzonatate 100 mg PO TID PRN 05/13/21 05/13/21 History Allergies Allergy/AdvReac Type Severity Reaction Status Date / Time No Known Allergies Allergy Unknown Verified 05/13/21 09:44 Vital Signs Vital Signs - 24 hr 05/13/21 09:31 05/13/21 09:42 05/13/21 09:43 Temperature 97.8 F Pulse Rate 125 H 116 H Respiratory Rate 30 H Blood Pressure 139/94 H Pulse Oximetry 48 L 87 L 05/13/21 09:51 05/13/21 10:24 05/13/21 12:25 Temperature Pulse Rate 114 H 106 H 94 Respiratory Rate 28 H 18 25 H Blood Pressure 139/94 H 128/92 H 141/104 H Pulse Oximetry 91 92 98 Exam Narrative: General: Ill-appearing female lying on her left side in bed. Weight: 83.1 kg. BMI: 32.1. HEENT: Normocephalic, atraumatic. PERRL, EOMI. Sclerae anicteric. Tacky mucous membranes. Neck: Supple. No adenopathy or obvious JVD. Respiratory: She is mildly tachypneic with conversational dyspnea, speaking in 3 to 4 word sentences. Lung sounds are diminished throughout with coarse rales and rhonchi. Cardiovascular: Regular rate and rhythm with S1-S2. Gastrointestinal: Abdomen is soft, nontender, and nondistended with positive bowel sounds.
--- NOTE | 2021-05-13 13:49 | WPDCNINT ---
Assessment and Plan Assessment and plan (1) Acute respiratory failure with hypoxia: Code(s): J96.01 - Acute respiratory failure with hypoxia Status: Acute Assessment and Plan: Acute hypoxic respiratory failure likely related to COVID pneumonia, admitted on 05/13/2021 with severe hypoxia in the ER -currently on high-flow therapy 60 L and 90% FiO2 with O2 sats greater than 90% -05/13/2021: Chest CTA did not show any pulmonary embolism, extensive ground-glass opacities throughout both lungs consistent with COVID pneumonia. -chest x-ray and ABGs reviewed -continue bronchodilators and Pulmicort -discussed with patient regarding BiPAP and intubation and mechanical ventilation if condition worsens, to which she is agreeable -patient complaining of generalized pain, will give her a dose of morphine which may help her with her respiratory status (2) Pneumonia due to 2019 novel coronavirus: Code(s): U07.1 - COVID-19; J12.82 - Pneumonia due to coronavirus disease 2019 Status: Acute Assessment and Plan: COVID positive on 05/01/2021: -presented with increasing shortness of breath, chest x-ray and CTA chest showed bilateral diffuse infiltrates consistent with COVID pneumonia -continue droplet, airborne, contact isolation/precautions -dexamethasone initiated on 05/13/2021 -Remdesivir initiated on 05/13/2021 -CRP of 36, LDH 2004. Ordered tocilizumab - (3) Transaminasemia: Code(s): R74.01 - Elevation of levels of liver transaminase levels Status: Acute Assessment and Plan: Elevated LFTs -could be related to COVID -will check hepatitis panel and right upper quadrant ultrasound -since patient has been taking a lot of Tylenol, will check Tylenol levels, this could also cause the elevated LFTs (4) Coagulation test abnormality: Code(s): R79.1 - Abnormal coagulation profile Status: Acute Assessment and Plan: Could be related to liver dysfunction since her LFTs elevated, COVID-19 -patient denies any drug use (5) DVT prophylaxis: Code(s): Z29.9 - Encounter for prophylactic measures, unspecified Status: Acute Assessment and Plan: DVT prophylaxis: Lovenox SQ Stress ulcer prophylaxis: Protonix Additional Plan Discussed with patient updated her with her condition and plan of care. She is aware that she has COVID pneumonia with worsening chest x-ray infection/infiltrate. Currently on high-flow therapy, I discussed with her regarding BiPAP and intubation with mechanical ventilation if needed, to which she is agreeable. Discussed with Rhonda Wolff, patient's mother, patient had requested me to talk to her. Updated patient's mother regarding her condition and plan of care. I answered all questions and she was appreciative of my call. The mother told me that the patient has had been taking a lot of Tylenol for her generalized body pain and headaches. Code status: Full code Critical care time spent: 47 minutes This dictation may have been done utilizing a voice recognition system. Attempts have been made to correct errors. However, there may be uncorrected grammatical, spelling, and recognition errors present. Due to a high probability of clinically significant, life threatening deterioration, the patient required my highest level of preparedness to intervene emergently and I personally spent this critical care time directly and personally managing the patient. This critical care time included obtaining a history; examining the patient; pulse oximetry; ordering and review of studies; arranging urgent treatment with development of a management plan; evaluation of patient's response to treatment; frequent reassessment; and discussions with other providers. It was exclusive of separately billable procedures and treating other patients and teaching time. Please see Assessment and Plan section and the rest of the note for further information on patient assessment and treatmen
--- NOTE | 2021-05-13 14:04 | ADMGEN ---
This patient, Frida Wolff, was admitted to Intensive Care Unit-3. Patient/family oriented to hospital policies and general routines including ID bracelet, bed and alarms, visiting hours, pain management, procedures, bathroom and other care routines, personal items, smoking policy, room service/diet, and visiting hours. Information on how to activate the Rapid Response Team has been discussed. Patient/Family are encouraged to report perceived risks to care and to ask questions if they do not understand what they are told or what they should do.
[2021-05-13 14:12] LABS: Mean Platelet Volume 10.4 fl (7.4-10.4); Platelet Count Result 306 k/mm3 (150-375)
[2021-05-13] MEDS: MORPHINE SULFATE (*CRX) 2 MG/ML INJ IV PUSH ×3 (14:18→20:32)
[2021-05-13 14:22] LABS: INR 2.1; Prothrombin Time 23.2 Seconds (11.1-14.7)
[2021-05-13 14:24] LABS: Partial Thromboplastin Time 62.9 SECONDS (22.3-36.8)
[2021-05-13 14:29] LABS: Fibrinogen 360 mg/dl (215-510)
[2021-05-13 14:30] LABS: Magnesium 2.1 mg/dL (1.6-2.3)
[2021-05-13 14:52] LABS: Lactate Dehydrogenase 2004 U/L (313-618)
[2021-05-13 15:13] LABS: Acetaminophen < 10 ug/mL (10-30)
[2021-05-13 15:14] LABS: Procalcitonin 81.3 ng/mL
[2021-05-13] MEDS: guaiFENesin/DEXTROMETHORPHAN 10 ML UDC PO (15:18)
[2021-05-13 15:26] LABS: Alanine Aminotransferase 181 U/L (4-35); Albumin Level 3.1 g/dL (3.5-5.1); Alkaline Phosphatase 540 U/L (38-126); Aspartate Amino Transferase 102 U/L (14-36); Bilirubin,Total 0.6 mg/dL (0.2-1.3)
[2021-05-13 15:59] LABS: Hepatitis B Surface Antigen Negative (Negative)
[2021-05-13 16:05] LABS: HAV RESULT Negative (Negative); Hepatitis B Core IgM Result Negative (Negative)
[2021-05-13 16:18] LABS: Hepatitis C Virus Antibody Reactive (Negative)
[2021-05-13] MEDS: BENZONATATE 100 MG CAPSULE 200 MG PO (17:46)
[2021-05-13] MEDS: BUDESONIDE RESPULE NEB 0.5 MG/2 ML AMP INHALATION (19:55)
[2021-05-13] MEDS: ALBUTEROL SULFATE (*SP) AEROSOL 1 PUFF 2 PUFF INHALATION (19:55)
[2021-05-13] MEDS: dexmedeTOMIDine 400 MCG/100 ML 400 MCG/100 ML BAG 11.64 MCG IV CONT (20:34)
[2021-05-13] MEDS: SODIUM CHLORIDE 0.9% IV 1,000 ML 75 ML IV CONT (22:08)
[2021-05-14] VITALS (39 sets, daily range): BP systolic 100–168; BP diastolic 76–102; PULSE 46–153; RESP 16–40; TEMP 35–37.1; O2SAT 90–100
[2021-05-14] MEDS: MORPHINE SULFATE (*CRX) 2 MG/ML INJ IV PUSH (02:31)
[2021-05-14] MEDS: dexmedeTOMIDine 400 MCG/100 ML 400 MCG/100 ML BAG 9.31 MCG IV CONT (02:32)
--- NOTE | 2021-05-14 04:30 | PC.NURSE ---
Patient placed on carroll hugger due to low temperature.
[2021-05-14 04:41] LABS: INR 2.5; Prothrombin Time 26.6 Seconds (11.1-14.7)
[2021-05-14 04:42] LABS: Partial Thromboplastin Time 59.8 SECONDS (22.3-36.8)
[2021-05-14 04:50] LABS: Hematocrit 42.2 % (37.0-47.0); Hemoglobin 13.6 g/dL (12.0-15.0); Mean Corpuscular HGB Conc 32.2 g/dl (32-36); Mean Corpuscular Hemoglobin 31.9 pg (26-34); Mean Corpuscular Volume 99.1 fl (80-100); Mean Platelet Volume 11.2 fl (7.4-10.4); Platelet Count Result 319 k/mm3 (150-375); Red Blood Count 4.26 M/mm3 (4.2-5.4); Red Cell Distribution Width 14.7 % (11.5-14.5); White Blood Count 4.5 K/mm3 (4.5-10.0)
[2021-05-14 04:56] LABS: Alanine Aminotransferase 152 U/L (4-35); Albumin Level 3.1 g/dL (3.5-5.1); Alkaline Phosphatase 480 U/L (38-126); Anion Gap 6 mmol/L (8-16); Aspartate Amino Transferase 90 U/L (14-36); Bilirubin,Total 0.7 mg/dL (0.2-1.3); Blood Urea Nitrogen 15 mg/dL (7-17); Calcium 8.4 mg/dL (8.4-10.2); Carbon Dioxide 25 mmol/L (22-30); Chloride 106 mmol/L (98-107); Estimated CRCL calculation 116 ml/min; Estimated Glomerular Filt Rate > 60; Glucose 146 mg/dL (65-110); Magnesium 2.2 mg/dL (1.6-2.3); Phosphorus 3.8 mg/dL (2.5-4.5); Potassium 3.8 mmol/L (3.4-5.0); Sodium 137 mmol/L (137-145)
[2021-05-14 05:13] LABS: Alveolar/Arterial O2 Gradient 542.7 mmHg; Base Excess ABG -0.9 mEq/l (+/-2.0); Carboxyhemoglobin 0.3 % THb (0-2.0); Fractional Inspired Oxygen 90 %; HCO3 ABG 22.9 mEq/l (22.0-26.0); Methemoglobin ABG 0.4 %THb (0-1.5); Oxygen Content ABG 18.6 %vol (16.0-22.0); Oxygen Saturation ABG 92.6 % (95.0-100.0); Oxyhemoglobin 90.5 % THb (90.0-100.0); PCO2 ABG 35.6 mmHg (35.0-45.0); PO2 ABG 62.5 mmHg (80.0-100.0); PO2 FiO2 Ratio Arterial Blood 0.69 %; Reduced Hemoglobin 8.8 %THb (0-5.0); Total Hemoglobin 14.6 g/dL (12.0-18.0); pH ABG 7.426 (7.350-7.450)
[2021-05-14 05:14] LABS: Site Drawn RIGHT RADIAL
[2021-05-14 05:15] LABS: Device BIPAP; Expiratory Pressure 6 cmH2O; Inspiratory Pressure 12 cmH2O; Modified Allen's Test Pass
--- NOTE | 2021-05-14 05:29 | PC.NURSE ---
Patient upset that she has to wear oxygen to maintain an adequate Oxygenation level. Patient encouraged to wear bipap at this time.
[2021-05-14 05:47] LABS: CRP 36.7 mg/dL (<1.0)
[2021-05-14] MEDS: ALBUTEROL SULFATE (*SP) AEROSOL 1 PUFF 2 PUFF INHALATION (08:56)
[2021-05-14] MEDS: BUDESONIDE RESPULE NEB 0.5 MG/2 ML AMP INHALATION ×2 (08:57→20:36)
[2021-05-14] MEDS: DEXAMETHASONE SOD PHOS INJ 4 MG/ML VIAL 6 MG IV PUSH (09:01)
[2021-05-14] MEDS: ENOXAPARIN 40 MG/0.4 ML SYRINGE SUB-Q (09:01)
[2021-05-14] MEDS: PANTOPRAZOLE SODIUM IV 40 MG VIAL IV PUSH (09:02)
[2021-05-14] MEDS: dexmedeTOMIDine 400 MCG/100 ML 400 MCG/100 ML BAG 16.29 MCG IV CONT (09:59)
[2021-05-14] MEDS: REMDESIVIR 100 MG/NS 250 ML 100 MG/250 ML BAG 250 MG IVPB (10:31)
[2021-05-14] MEDS: RAPID SEQUENCE INTUBATION KIT 1 EACH (12:04)
[2021-05-14] MEDS: PROPOFOL IV EMULSION 100 ML 17.64 MG IV CONT (12:05)
[2021-05-14 12:41] LABS: Base Excess ABG -6.9 mEq/l (+/-2.0); Carboxyhemoglobin 0.3 % THb (0-2.0); Fractional Inspired Oxygen 100 %; HCO3 ABG 18.2 mEq/l (22.0-26.0); Methemoglobin ABG 0.5 %THb (0-1.5); Oxygen Content ABG 19.3 %vol (16.0-22.0); Oxygen Saturation ABG 90.9 % (95.0-100.0); PCO2 ABG 35.6 mmHg (35.0-45.0); PO2 ABG 63.4 mmHg (80.0-100.0); PO2 FiO2 Ratio Arterial Blood 0.63 %; Reduced Hemoglobin 10.2 %THb (0-5.0); Total Hemoglobin 15.4 g/dL (12.0-18.0); pH ABG 7.326 (7.350-7.450)
[2021-05-14 12:42] LABS: Device VENTILATOR; Modified Allen's Test Pass; Site Drawn LEFT RADIAL
[2021-05-14 12:43] LABS: Arterial Blood Gas PEEP 12 cmH2O; Arterial Blood Gas Tidal Volume 370 ml; Arterial Blood Gas Vent Mode CMV; Arterial Blood Gas Ventilator rate 26 /MIN
--- NOTE | 2021-05-14 12:57 | WPDPROCEDUR ---
Procedures Intubation Intubation Date: 05/14/21 Intubation Time: 10:23 A pre-procedural Time-Out was completed immediately before starting the procedure and confirmed: Patient Identification, Site, Procedure, Patient Position and the Availability of Requisite Equipment: Yes Sedative: etomidate Paralytic: rocuronium Laryngoscope: fiber optic video scope Assist device used: fiber optic device ET tube size: 7.5 Tube secured location: lips Tube placement confirmation: visualized tube passing through cords, equal breath sounds bilaterally, no breath sounds over epigastrium and confirmation by capnometry Patient tolerated procedure: well Intubation complications: none
--- NOTE | 2021-05-14 12:58 | WPDINTPN ---
Progress Note: A&P Assessment and Plan (1) Acute respiratory failure with hypoxia: Code(s): J96.01 - Acute respiratory failure with hypoxia Status: Acute Assessment and Plan: Acute hypoxic respiratory failure likely related to COVID pneumonia, admitted on 05/13/2021 with severe hypoxia in the ER -currently on high-flow therapy 60 L and 90% FiO2 with O2 sats greater than 90% -05/14/2021: Chest x-ray showed diffuse lung disease with mild worsening consistent with COVID-19 pneumonia.. -ABGs were reviewed, -05/14/2021: Patient was tachypneic in the upper 40s and lower 50s, was in impending respiratory failure with intermittent confusion and shallow breathing. Decided to intubate the patient. Intubation was uneventful -will place her on low tidal volume strategy peep of 12 100% FiO2, will wean FiO2 as tolerated -will place patient in prone position for 18 hours a day -continue bronchodilators and Pulmicort (2) Pneumonia due to 2019 novel coronavirus: Code(s): U07.1 - COVID-19; J12.82 - Pneumonia due to coronavirus disease 2019 Status: Acute Assessment and Plan: COVID positive on 05/01/2021: -presented with increasing shortness of breath, chest x-ray and CTA chest showed bilateral diffuse infiltrates consistent with COVID pneumonia -continue droplet, airborne, contact isolation/precautions -dexamethasone initiated on 05/13/2021 -Remdesivir initiated on 05/13/2021 -CRP of 36, LDH 2004. -05/13/2021: Received tocilizumab - (3) Transaminasemia: Code(s): R74.01 - Elevation of levels of liver transaminase levels Status: Acute Assessment and Plan: Elevated LFTs -could be related to COVID -hepatitis panel showed hepatitis-C antibody reactive, HCV PCR pending -since patient has been taking a lot of Tylenol, will check Tylenol levels, this could also cause the elevated LFTs -Tylenol levels are within normal limits -05/14/2021: Right upper quadrant ultrasound with no etiology of abnormal liver function tests -LFTs trending down (4) Coagulation test abnormality: Code(s): R79.1 - Abnormal coagulation profile Status: Acute Assessment and Plan: Could be related to liver dysfunction since her LFTs elevated, COVID-19 -patient denies any drug use (5) DVT prophylaxis: Code(s): Z29.9 - Encounter for prophylactic measures, unspecified Status: Acute Assessment and Plan: DVT prophylaxis: Lovenox SQ Stress ulcer prophylaxis: Protonix Additional Plan 05/14/2021: Discuss with Rhonda, patient's mother, updated her with pt's condition and plan of care. I did update her regarding patient's intubation and placing on mechanical ventilation. I answered all her questions Code status: Full code Critical care time spent: 51 minutes This dictation may have been done utilizing a voice recognition system. Attempts have been made to correct errors. However, there may be uncorrected grammatical, spelling, and recognition errors present. Due to a high probability of clinically significant, life threatening deterioration, the patient required my highest level of preparedness to intervene emergently and I personally spent this critical care time directly and personally managing the patient. This critical care time included obtaining a history; examining the patient; pulse oximetry; ordering and review of studies; arranging urgent treatment with development of a management plan; evaluation of patient's response to treatment; frequent reassessment; and discussions with other providers. It was exclusive of separately billable procedures and treating other patients and teaching time. Please see Assessment and Plan section and the rest of the note for further information on patient assessment and treatment Subjective Date/time seen: 05/14/21 12:58 Interval history: Reason for consult: Acute hypoxic respiratory failure, 19 pneumonia, elevated liver enzymes, coagulopathy Intuba
[2021-05-14] MEDS: MIDAZOLAM 100MG/NS 100ML(*CRX) 100 MG/100 ML BAG IV CONT (14:35)
[2021-05-14] MEDS: ALBUTEROL SULFATE NEB 2.5 MG/0.5 ML INH INHALATION ×2 (15:04→20:36)
[2021-05-14] MEDS: PROPOFOL IV EMULSION 100 ML 23.52 MG IV CONT ×2 (15:27→18:33)
[2021-05-14] MEDS: CENTRAL LINE FLUSH 10 ML IV PUSH ×2 (18:33→20:11)
--- NOTE | 2021-05-14 18:46 | PM.IMPN ---
Progress Note: A&P Assessment and Plan (1) Acute respiratory failure with hypoxia: Code(s): J96.01 - Acute respiratory failure with hypoxia Status: Acute Assessment and Plan: hypoxic respiratory failure 2nd to COVID status post intubation 9-7 assist-control vent settings, with FiO2 down to 70 from 100 earlier today, and PEEP of 12 patient in ICU, weaning as tolerated noted that she did receive tocilizumab currently on day 2 of dexamethasone and remdesivir continue appropriate precautions (2) Pneumonia due to 2019 novel coronavirus: Code(s): U07.1 - COVID-19; J12.82 - Pneumonia due to coronavirus disease 2019 Status: Acute Assessment and Plan: as above (3) Transaminasemia: Code(s): R74.01 - Elevation of levels of liver transaminase levels Status: Acute Assessment and Plan: possibly related to COVID, has only received 1 remdesivir dose thus far Abdominal ultrasound does not show any obvious etiology for transaminitis Hepatitis panel pending (4) Coagulation test abnormality: Code(s): R79.1 - Abnormal coagulation profile Status: Acute Assessment and Plan: Could be related to liver dysfunction since her LFTs elevated, COVID-19 -patient denies any drug use (5) DVT prophylaxis: Code(s): Z29.9 - Encounter for prophylactic measures, unspecified Status: Acute Assessment and Plan: DVT prophylaxis: Lovenox SQ Stress ulcer prophylaxis: Protonix Time Spent With Patient Time with patient: less than 15 minutes Subjective Date/time seen: 05/14/21 18:46 no meaningful interview possible, as patient is intubated Review of Systems Review of Systems: no meaningful interview possible, as patient is intubated Exam Narrative: physical exam deferred Objective Data Vital Signs Vital Signs: Vital Signs - 24 hr 05/13/21 19:55 05/13/21 19:56 05/13/21 20:00 Temperature Pulse Rate 70 70 69 Respiratory Rate 38 H 36 H 31 H Blood Pressure 130/91 H Pulse Oximetry 95 92 05/13/21 20:06 05/13/21 20:34 05/13/21 21:00 Temperature Pulse Rate 69 83 58 L Respiratory Rate 34 H 40 H 32 H Blood Pressure Pulse Oximetry 92 05/13/21 22:00 05/13/21 22:20 05/14/21 00:00 Temperature 98.7 F Pulse Rate 54 L 58 L 52 L Respiratory Rate 31 H 32 H 30 H Blood Pressure 145/97 H 153/98 H Pulse Oximetry 100 96 05/14/21 01:50 05/14/21 02:00 05/14/21 02:32 Temperature Pulse Rate 53 L 50 L 51 L Respiratory Rate 35 H 27 H 33 H Blood Pressure 152/90 H Pulse Oximetry 96 92 05/14/21 03:16 05/14/21 04:00 05/14/21 04:19 Temperature 95.0 F L Pulse Rate 50 L 48 L 54 L Respiratory Rate 35 H 38 H Blood Pressure 152/102 H Pulse Oximetry 94 95 05/14/21 04:57 05/14/21 05:28 05/14/21 06:00 Temperature Pulse Rate 46 L 65 48 L Respiratory Rate 32 H 40 H 33 H Blood Pressure 163/91 H Pulse Oximetry 93 94 05/14/21 08:00 05/14/21 08:57 05/14/21 09:06 Temperature 97.4 F L Pulse Rate 52 L 46 L 55 L Respiratory Rate 25 H 31 H 24 H Blood Pressure 165/98 H Pulse Oximetry 94 92 05/14/21 09:59 05/14/21 10:00 05/14/21 11:35 Temperature Pulse Rate 56 L 49 L 79 Respiratory Rate 24 H 16 Blood Pressure 168/102 H Pulse Oximetry 92 93 05/14/21 12:00 05/14/21 12:05 05/14/21 14:00 Temperature 98.3 F Pulse Rate 92 153 H 71 Respiratory Rate 26 H 24 H 31 H Blood Pressure 154/99 H 113/82 Pulse Oximetry 90 96 05/14/21 14:35 05/14/21 15:05 05/14/21 15:11 Temperature Pulse Rate 78 57 L 60 Respiratory Rate 26 H 26 H Blood Pressure Pulse Oximetry 99 05/14/21 15:17 05/14/21 15:27 05/14/21 16:00 Temperature 97.6 F Pulse Rate 61 61 72 Respiratory Rate 26 H 26 H 26 H Blood Pressure 115/83 Pulse Oximetry 100 05/14/21 17:03 05/14/21 18:00 05/14/21 18:33 Temperature 98.1 F Pulse Rate 76 60 61 Respiratory Rate 26 H 26 H Blood Pressure 100/76 Pulse Ox
[2021-05-14] MEDS: MINERAL OIL/WHITE PETROLATUM OINTMENT 1 APPLIC EACH EYE (20:11)
[2021-05-14] MEDS: PROPOFOL IV EMULSION 100 ML 29.4 MG IV CONT (21:48)
--- NOTE | 2021-05-14 21:58 | PC.NURSE ---
Spoke with Dr. Shields regarding increased sedation needs. Patient currently on 50mcg propofol and 6mg versed while proned trying to move around. Currently +1 RASS score. Start Fentanyl drip and titrate for -2 RASS
[2021-05-14] MEDS: FENTANYL 2,500MCG/NS250ML(*CRX 2,500 MCG/250 ML BAG IV CONT (22:31)
[2021-05-15] VITALS (44 sets, daily range): BP systolic 109–150; BP diastolic 75–106; PULSE 53–94; RESP 20–29; TEMP 35.8–36.8; O2SAT 92–99; BMI 33.3
--- NOTE | 2021-05-15 | ECHO_ITS ---
Patient Info Name: Frida Wolff Age: 50 years : 1970 Gender: Female Ht: 67 in Wt: 212 lbs BSA: 2.17 m2 HR: 61 bpm BP: 114 / 82 mmHg Heart Rhythm: Sinus Rhythm Exam Date: 05/15/2021 2:38 PM Exam Location: [facility] Patient Status: Inpatient Admit Date: 05/13/2021 Staff Ordering Physician: Chela Bassett MD Traffic Ii Manager: Mac Velez RDCS, RT Attending Provider: Aiden Chen MD Referring Physician: Serjio VELAZQUEZ; Exam Type: CA echo doppler color flow Study Info Indications J96.01 - Acute respiratory failure with hypoxia Complete two-dimensional, color flow and Doppler transthoracic echocardiogram is performed. Summary 1. Complete two-dimensional, color flow and Doppler transthoracic echocardiogram is performed. 2. Left ventricular chamber dimension is normal. 3. Left ventricular systolic function is normal, estimated at >70%. 4. There is mildly increased left ventricular wall thickness. 5. The left ventricular diastolic function is grade I diastolic dysfunction. 6. Right ventricular chamber dimension is mildly enlarged with normal systolic function. 7. No significant valve disease. 8. Sinus bradycardia. 9. Pulmonary pressure could not be evaluated on the study. Left Ventricle Left ventricular chamber dimension is normal. Left ventricular systolic function is normal, estimated at >70%. There is mildly increased left ventricular wall thickness. Left ventricular septal wall motion is normal. The left ventricular diastolic function is grade I diastolic dysfunction. Right Ventricle Right ventricular chamber dimension is mildly enlarged with normal systolic function. Right ventricular systolic function is normal. Left Atria Left atrial chamber dimension is normal. Right Atria Right atrial chamber dimension is normal. Aortic Valve The aortic valve is trileaflet. There is no aortic valve sclerosis. There is no aortic valve stenosis. There is no aortic valve regurgitation. Pulmonic Valve The pulmonic valve is normal. There is no pulmonic valve stenosis. There is no pulmonic regurgitation. Mitral Valve The mitral valve has normal leaflets. There is no mitral valve stenosis. There is no mitral valve regurgitation. Tricuspid Valve The tricuspid valve leaflets are normal. There is no significant tricuspid valve stenosis. There is trace tricuspid valve regurgitation. No pulmonary hypertension, estimated pulmonary arterial systolic pressure is Empty. Pericardium/Pleural The pericardium appears normal. There is no pericardial effusion. Inferior Vena Cava Normal inferior vena cava with >50% collapse upon inspiration consistent with Empty right atrial pressure, 10 mmHg. Aorta The aortic root size at the sinus of Valsalva is normal. The prox ascending aorta size is normal. Left Ventricular Outflow Tract Name Value Normal LVOT 2D LVOT Diameter 1.9 cm LVOT Doppler LVOT Peak Gradient 4 mmHg LVOT Mean Gradient 2 mmHg LVOT VTI 21 cm LVOT VTI/
[2021-05-15] MEDS: PROPOFOL IV EMULSION 100 ML 20.58 MG IV CONT ×5 (01:14→19:48)
[2021-05-15] MEDS: MIDAZOLAM 100MG/NS 100ML(*CRX) 100 MG/100 ML BAG 6 MG IV CONT (01:20)
[2021-05-15 04:47] LABS: Hemoglobin 14.2 g/dL (12.0-15.0); Mean Corpuscular HGB Conc 32.3 g/dl (32-36); Mean Corpuscular Hemoglobin 33.3 pg (26-34); Mean Platelet Volume 11.1 fl (7.4-10.4); Platelet Count Result 340 k/mm3 (150-375); Red Blood Count 4.27 M/mm3 (4.2-5.4); Red Cell Distribution Width 15.2 % (11.5-14.5); White Blood Count 9.2 K/mm3 (4.5-10.0)
[2021-05-15 04:59] LABS: Alanine Aminotransferase 106 U/L (4-35); Alkaline Phosphatase 472 U/L (38-126); Anion Gap 14 mmol/L (8-16); Aspartate Amino Transferase 60 U/L (14-36); Bilirubin,Total 0.8 mg/dL (0.2-1.3); Blood Urea Nitrogen 22 mg/dL (7-17); Calcium 8.8 mg/dL (8.4-10.2); Carbon Dioxide 18 mmol/L (22-30); Chloride 108 mmol/L (98-107); Estimated CRCL calculation 88 ml/min; Estimated Glomerular Filt Rate > 60; Glucose 114 mg/dL (65-110); INR 1.2; Magnesium 2.3 mg/dL (1.6-2.3); Phosphorus 3.5 mg/dL (2.5-4.5); Potassium 3.9 mmol/L (3.4-5.0); Prothrombin Time 14.8 Seconds (11.1-14.7); Sodium 140 mmol/L (137-145)
[2021-05-15 05:00] LABS: Partial Thromboplastin Time 30.8 SECONDS (22.3-36.8)
[2021-05-15 05:23] LABS: Alveolar/Arterial O2 Gradient 234.4 mmHg; Base Excess ABG -7.1 mEq/l (+/-2.0); Carboxyhemoglobin 0.3 % THb (0-2.0); Fractional Inspired Oxygen 50 %; HCO3 ABG 16.8 mEq/l (22.0-26.0); Methemoglobin ABG 0.3 %THb (0-1.5); Oxygen Content ABG 19.9 %vol (16.0-22.0); Oxygen Saturation ABG 96.6 % (95.0-100.0); Oxyhemoglobin 95.3 % THb (90.0-100.0); PCO2 ABG 29.9 mmHg (35.0-45.0); PO2 ABG 88.5 mmHg (80.0-100.0); PO2 FiO2 Ratio Arterial Blood 1.77 %; Reduced Hemoglobin 4.1 %THb (0-5.0); Total Hemoglobin 14.8 g/dL (12.0-18.0); pH ABG 7.368 (7.350-7.450)
[2021-05-15 05:24] LABS: Arterial Blood Gas Vent Mode CMV; Arterial Blood Gas Ventilator rate 26 /MIN; Device VENTILATOR; Modified Allen's Test Pass; Site Drawn RIGHT RADIAL
[2021-05-15 05:25] LABS: Arterial Blood Gas PEEP 12 cmH2O; Arterial Blood Gas Tidal Volume 370 ml
[2021-05-15] MEDS: CENTRAL LINE FLUSH 10 ML IV PUSH ×4 (05:53→19:51)
[2021-05-15] MEDS: FUROSEMIDE INJ 40 MG/4 ML VIAL IV PUSH (09:01)
[2021-05-15] MEDS: ASCORBIC ACID 500 MG TABLET 1000 MG PO (09:01)
[2021-05-15] MEDS: CHOLECALCIFEROL 1,000 UNITS TABLET 1000 UNITS PO (09:02)
[2021-05-15] MEDS: DEXAMETHASONE SOD PHOS INJ 4 MG/ML VIAL 6 MG IV PUSH (09:02)
[2021-05-15] MEDS: MINERAL OIL/WHITE PETROLATUM OINTMENT 1 APPLIC EACH EYE ×2 (09:02→19:51)
[2021-05-15] MEDS: ENOXAPARIN 40 MG/0.4 ML SYRINGE SUB-Q (09:02)
[2021-05-15] MEDS: PANTOPRAZOLE SODIUM IV 40 MG VIAL IV PUSH (09:03)
[2021-05-15] MEDS: ZINC SULFATE 220 MG CAPSULE PO (09:03)
[2021-05-15] MEDS: ALBUTEROL SULFATE NEB 2.5 MG/0.5 ML INH INHALATION ×3 (09:12→19:58)
[2021-05-15] MEDS: BUDESONIDE RESPULE NEB 0.5 MG/2 ML AMP INHALATION ×2 (09:12→19:58)
[2021-05-15] MEDS: REMDESIVIR 100 MG/NS 250 ML 100 MG/250 ML BAG 250 MG IVPB (10:24)
--- NOTE | 2021-05-15 13:02 | WPDINTPN ---
Progress Note: A&P Assessment and Plan (1) Acute respiratory failure with hypoxia: Code(s): J96.01 - Acute respiratory failure with hypoxia Status: Acute Assessment and Plan: Acute hypoxic respiratory failure likely related to COVID pneumonia, admitted on 05/13/2021 with severe hypoxia in the ER -patient intubated on 05/14/2021 after failing high-flow therapy and BiPAP -05/15/2021: Chest x-ray shows Worsened diffuse lung disease, consistent with COVID-19 pneumonia. -ABGs were reviewed, -patient on low tidal volume strategy, peep of 12, 50% FiO2 -will place patient in prone position for 18 hours a day -continue bronchodilators and Pulmicort -will diurese patient given worsening infiltrates/edema chest x-ray -echocardiogram has been ordered (2) Pneumonia due to 2019 novel coronavirus: Code(s): U07.1 - COVID-19; J12.82 - Pneumonia due to coronavirus disease 2019 Status: Acute Assessment and Plan: COVID positive on 05/01/2021: -presented with increasing shortness of breath, chest x-ray and CTA chest showed bilateral diffuse infiltrates consistent with COVID pneumonia -continue droplet, airborne, contact isolation/precautions -dexamethasone initiated on 05/13/2021 -Remdesivir initiated on 05/13/2021 -CRP of 36, LDH 2004. -05/13/2021: Received tocilizumab Will trend inflammatory markers (3) Transaminasemia: Code(s): R74.01 - Elevation of levels of liver transaminase levels Status: Acute Assessment and Plan: Elevated LFTs -could be related to COVID -hepatitis panel showed hepatitis-C antibody reactive, HCV PCR pending -since patient has been taking a lot of Tylenol, will check Tylenol levels, this could also cause the elevated LFTs -Tylenol levels are within normal limits -05/14/2021: Right upper quadrant ultrasound with no etiology of abnormal liver function tests -LFTs trending down (4) Coagulation test abnormality: Code(s): R79.1 - Abnormal coagulation profile Status: Acute Assessment and Plan: Could be related to liver dysfunction since her LFTs elevated, COVID-19 -patient denies any drug use (5) DVT prophylaxis: Code(s): Z29.9 - Encounter for prophylactic measures, unspecified Status: Acute Assessment and Plan: DVT prophylaxis: Lovenox SQ (6) Dietary counseling and surveillance: Code(s): Z71.3 - Dietary counseling and surveillance Status: Acute Assessment and Plan: Stress ulcer prophylaxis: Protonix Will start tube feeds today Additional Plan Discuss with Rhonda, patient's mother, updated her with pt's condition and plan of care. Code status: Full code Critical care time spent: 35 minutes This dictation may have been done utilizing a voice recognition system. Attempts have been made to correct errors. However, there may be uncorrected grammatical, spelling, and recognition errors present. Due to a high probability of clinically significant, life threatening deterioration, the patient required my highest level of preparedness to intervene emergently and I personally spent this critical care time directly and personally managing the patient. This critical care time included obtaining a history; examining the patient; pulse oximetry; ordering and review of studies; arranging urgent treatment with development of a management plan; evaluation of patient's response to treatment; frequent reassessment; and discussions with other providers. It was exclusive of separately billable procedures and treating other patients and teaching time. Please see Assessment and Plan section and the rest of the note for further information on patient assessment and treatment Subjective Date/time seen: 05/15/21 13:02 Interval history: Reason for consult: Acute hypoxic respiratory failure, 19 pneumonia, elevated liver enzymes, coagulopathy Intubated 05/14/2021 05/15/2021: Patient remains intubated on CMV mode of kailey
--- NOTE | 2021-05-15 16:14 | PM.IMPN ---
Progress Note: A&P Assessment and Plan (1) Acute respiratory failure with hypoxia: Code(s): J96.01 - Acute respiratory failure with hypoxia Status: Acute Assessment and Plan: hypoxic respiratory failure 2nd to COVID status post intubation 9-7 CMV vent settings, with FiO2 down to 50%, and PEEP of 12 patient in ICU, weaning as tolerated noted that she did receive tocilizumab currently dexamethasone and remdesivir, day 3 of both continue appropriate precautions Echocardiogram pending Noted plan is to diurese patient based on worsening pulmonary edema on chest x-ray (2) Pneumonia due to 2019 novel coronavirus: Code(s): U07.1 - COVID-19; J12.82 - Pneumonia due to coronavirus disease 2019 Status: Acute Assessment and Plan: as above (3) Transaminasemia: Code(s): R74.01 - Elevation of levels of liver transaminase levels Status: Acute Assessment and Plan: possibly related to COVID, has only received 1 remdesivir dose thus far Abdominal ultrasound does not show any obvious etiology for transaminitis Hepatitis panel pending, Tylenol level are normal (4) Coagulation test abnormality: Code(s): R79.1 - Abnormal coagulation profile Status: Acute Assessment and Plan: Could be related to liver dysfunction since her LFTs elevated, COVID-19 -patient denies any drug use (5) DVT prophylaxis: Code(s): Z29.9 - Encounter for prophylactic measures, unspecified Status: Acute Assessment and Plan: DVT prophylaxis: Lovenox SQ Stress ulcer prophylaxis: Protonix Time Spent With Patient Time with patient: less than 15 minutes Subjective Date/time seen: 05/15/21 16:14 No meaningful interview possible Review of Systems Review of Systems: No meaningful interview possible Exam Narrative: No meaningful review possible Const: General: no acute distress Neck: Neck: no JVD Resp: Other: Mechanical ventilation Cardio: Rate: regular rate Rhythm: regular rhythm GI: GI Palp: Yes Soft to palpation and No Tenderness to palpation present (GI) Objective Data Vital Signs Vital Signs: Vital Signs - 24 hr 05/14/21 17:03 05/14/21 18:00 05/14/21 18:33 Temperature 98.1 F Pulse Rate 76 60 61 Respiratory Rate 26 H 26 H Blood Pressure 100/76 Pulse Oximetry 99 100 05/14/21 20:00 05/14/21 20:10 05/14/21 20:36 Temperature 97.2 F L Pulse Rate 79 85 63 Respiratory Rate 31 H 34 H 26 H Blood Pressure 111/87 Pulse Oximetry 100 05/14/21 20:37 05/14/21 21:41 05/14/21 21:48 Temperature Pulse Rate 83 89 90 Respiratory Rate 30 H 30 H Blood Pressure Pulse Oximetry 100 05/14/21 22:00 05/14/21 22:31 05/14/21 22:33 Temperature Pulse Rate 79 68 62 Respiratory Rate 28 H 27 H 26 H Blood Pressure 111/80 Pulse Oximetry 98 05/14/21 23:39 05/14/21 23:53 05/15/21 00:00 Temperature 97.3 F L Pulse Rate 58 L 61 61 Respiratory Rate 26 H 26 H Blood Pressure 109/75 Pulse Oximetry 97 96 05/15/21 01:14 05/15/21 01:17 05/15/21 01:20 Temperature Pulse Rate 78 78 77 Respiratory Rate 26 H 26 H 26 H Blood Pressure Pulse Oximetry 05/15/21 01:50 05/15/21 02:00 05/15/21 03:39 Temperature Pulse Rate 61 76 63 Respiratory Rate 26 H 26 H Blood Pressure 121/82 Pulse Oximetry 96 96 96 05/15/21 04:00 05/15/21 04:18 05/15/21 04:50 Temperature 97.4 F L Pulse Rate 59 L 59 L 60 Respiratory Rate 26 H 26 H Blood Pressure 119/77 Pulse Oximetry 96 96 05/15/21 05:11 05/15/21 05:22 05/15/21 05:53 Temperature Pulse Rate 75 75 60 Respiratory Rate 26 H 26 H 26 H Blood Pressure Pulse Oximetry 05/15/21 05:54 05/15/21 06:00 05/15/21 08:00 Temperature 97.6 F Pulse Rate 61 59 L 61 Respiratory Rate 26 H 26 H 26 H Blood Pressure 117/78 122/82 Pulse Oximetry 93 93 05/15/21 08:38 05/15/21 09:13 05/15/21 10:00 Temperature Pulse Rate 81 61 65 Respiratory Rat
[2021-05-15 18:16] LABS: Glucose Point of Care 127 mg/dl (65-105)
[2021-05-15] MEDS: MIDAZOLAM 100MG/NS 100ML(*CRX) 100 MG/100 ML BAG IV CONT (19:58)
[2021-05-15] MEDS: PROPOFOL IV EMULSION 100 ML 23.52 MG IV CONT (23:09)
[2021-05-16] VITALS (35 sets, daily range): BP systolic 132–159; BP diastolic 90–100; PULSE 48–98; RESP 24–29; TEMP 36–36.6; O2SAT 92–97
[2021-05-16] MEDS: ALBUTEROL SULFATE NEB 2.5 MG/0.5 ML INH INHALATION ×4 (02:11→20:11)
[2021-05-16] MEDS: PROPOFOL IV EMULSION 100 ML 23.52 MG IV CONT ×3 (03:08→11:08)
[2021-05-16] MEDS: CENTRAL LINE FLUSH 10 ML IV PUSH ×4 (05:05→20:31)
[2021-05-16 05:09] LABS: Carboxyhemoglobin 0.1 % THb (0-2.0); Fractional Inspired Oxygen 45 %; HCO3 ABG 19.2 mEq/l (22.0-26.0); Methemoglobin ABG 0.5 %THb (0-1.5); Oxygen Content ABG 21.4 %vol (16.0-22.0); Oxygen Saturation ABG 96.1 % (95.0-100.0); Oxyhemoglobin 94.7 % THb (90.0-100.0); PCO2 ABG 30.9 mmHg (35.0-45.0); PO2 ABG 79.7 mmHg (80.0-100.0); PO2 FiO2 Ratio Arterial Blood 1.77 %; Reduced Hemoglobin 4.7 %THb (0-5.0); Total Hemoglobin 16.1 g/dL (12.0-18.0); pH ABG 7.412 (7.350-7.450)
[2021-05-16 05:10] LABS: Device VENTILATOR; Modified Allen's Test Pass; Site Drawn LEFT RADIAL
[2021-05-16 05:11] LABS: Arterial Blood Gas PEEP 12 cmH2O; Arterial Blood Gas Tidal Volume 370 ml; Arterial Blood Gas Vent Mode CMV; Arterial Blood Gas Ventilator rate 26 /MIN
[2021-05-16 05:27] LABS: Hematocrit 42.3 % (37.0-47.0); Hemoglobin 13.6 g/dL (12.0-15.0); Mean Corpuscular HGB Conc 32.2 g/dl (32-36); Mean Corpuscular Hemoglobin 33.1 pg (26-34); Mean Corpuscular Volume 102.9 fl (80-100); Mean Platelet Volume 11.3 fl (7.4-10.4); Platelet Count Result 366 k/mm3 (150-375); Red Blood Count 4.11 M/mm3 (4.2-5.4); Red Cell Distribution Width 15.2 % (11.5-14.5)
[2021-05-16 05:44] LABS: Alanine Aminotransferase 84 U/L (4-35); Alkaline Phosphatase 405 U/L (38-126); Anion Gap 11 mmol/L (8-16); Aspartate Amino Transferase 47 U/L (14-36); Blood Urea Nitrogen 31 mg/dL (7-17); Calcium 8.7 mg/dL (8.4-10.2); Carbon Dioxide 21 mmol/L (22-30); Chloride 108 mmol/L (98-107); Estimated CRCL calculation 88 ml/min; Estimated Glomerular Filt Rate > 60; Glucose 144 mg/dL (65-110); Lactate Dehydrogenase 1287 U/L (313-618); Magnesium 2.4 mg/dL (1.6-2.3); Phosphorus 3.2 mg/dL (2.5-4.5); Potassium 3.7 mmol/L (3.4-5.0); Sodium 140 mmol/L (137-145)
[2021-05-16 05:45] LABS: INR 1.1; Partial Thromboplastin Time 25.8 SECONDS (22.3-36.8); Prothrombin Time 13.8 Seconds (11.1-14.7)
[2021-05-16 06:01] LABS: D Dimer 5.86 ug/mL (<0.48)
[2021-05-16] MEDS: FENTANYL 2,500MCG/NS250ML(*CRX 2,500 MCG/250 ML BAG 10 MCG IV CONT (06:30)
[2021-05-16] MEDS: BUDESONIDE RESPULE NEB 0.5 MG/2 ML AMP INHALATION ×2 (07:45→20:11)
[2021-05-16] MEDS: ZINC SULFATE 220 MG CAPSULE PO (08:01)
[2021-05-16] MEDS: PANTOPRAZOLE SODIUM IV 40 MG VIAL IV PUSH (08:01)
[2021-05-16] MEDS: DEXAMETHASONE SOD PHOS INJ 4 MG/ML VIAL 6 MG IV PUSH (08:01)
[2021-05-16] MEDS: ENOXAPARIN 40 MG/0.4 ML SYRINGE SUB-Q (08:01)
[2021-05-16] MEDS: ASCORBIC ACID 500 MG TABLET 1000 MG PO (08:01)
[2021-05-16] MEDS: CHOLECALCIFEROL 1,000 UNITS TABLET 1000 UNITS PO (08:01)
[2021-05-16] MEDS: MINERAL OIL/WHITE PETROLATUM OINTMENT 1 APPLIC EACH EYE ×2 (11:09→20:31)
[2021-05-16] MEDS: REMDESIVIR 100 MG/NS 250 ML 100 MG/250 ML BAG 250 MG IVPB (11:09)
[2021-05-16] MEDS: MIDAZOLAM 100MG/NS 100ML(*CRX) 100 MG/100 ML BAG 6 MG IV CONT (11:11)
--- NOTE | 2021-05-16 11:34 | WPDINTPN ---
Progress Note: A&P Assessment and Plan (1) Acute respiratory failure with hypoxia: Code(s): J96.01 - Acute respiratory failure with hypoxia Status: Acute Assessment and Plan: Acute hypoxic respiratory failure likely related to COVID pneumonia, admitted on 05/13/2021 with severe hypoxia in the ER -patient intubated on 05/14/2021 after failing high-flow therapy and BiPAP -ABGs and chest x-ray reviewed, -patient on low tidal volume strategy, peep of 12, 45% FiO2 -continue to place patient in prone position for 18 hours a day -continue bronchodilators and Pulmicort -echocardiogram reviewed (2) Pneumonia due to 2019 novel coronavirus: Code(s): U07.1 - COVID-19; J12.82 - Pneumonia due to coronavirus disease 2019 Status: Acute Assessment and Plan: COVID positive on 05/01/2021: -presented with increasing shortness of breath, chest x-ray and CTA chest showed bilateral diffuse infiltrates consistent with COVID pneumonia -continue droplet, airborne, contact isolation/precautions -dexamethasone initiated on 05/13/2021 -Remdesivir initiated on 05/13/2021 -CRP of 36, LDH 2004. -05/13/2021: Received tocilizumab Will trend inflammatory markers (3) Transaminasemia: Code(s): R74.01 - Elevation of levels of liver transaminase levels Status: Acute Assessment and Plan: Elevated LFTs -could be related to COVID -hepatitis panel showed hepatitis-C antibody reactive, HCV PCR pending -since patient has been taking a lot of Tylenol, will check Tylenol levels, this could also cause the elevated LFTs -Tylenol levels are within normal limits -05/14/2021: Right upper quadrant ultrasound with no etiology of abnormal liver function tests -LFTs trending down. Monitor (4) DVT prophylaxis: Code(s): Z29.9 - Encounter for prophylactic measures, unspecified Status: Acute Assessment and Plan: DVT prophylaxis: Lovenox SQ (5) Dietary counseling and surveillance: Code(s): Z71.3 - Dietary counseling and surveillance Status: Acute Assessment and Plan: Stress ulcer prophylaxis: Protonix Continue tube feeds Additional Plan Code status: Full code Critical care time spent: 32 minutes This dictation may have been done utilizing a voice recognition system. Attempts have been made to correct errors. However, there may be uncorrected grammatical, spelling, and recognition errors present. Due to a high probability of clinically significant, life threatening deterioration, the patient required my highest level of preparedness to intervene emergently and I personally spent this critical care time directly and personally managing the patient. This critical care time included obtaining a history; examining the patient; pulse oximetry; ordering and review of studies; arranging urgent treatment with development of a management plan; evaluation of patient's response to treatment; frequent reassessment; and discussions with other providers. It was exclusive of separately billable procedures and treating other patients and teaching time. Please see Assessment and Plan section and the rest of the note for further information on patient assessment and treatment Subjective Date/time seen: 05/16/21 11:34 Overnight events reviewed. Afebrile Continues to be on mechanical ventilation 12 of PEEP and 45% FiO2 Continues to be on sedation Patient was placed in prone position overnight Vitals acceptable On tube feeds Interval history: Reason for consult: Acute hypoxic respiratory failure, 19 pneumonia, elevated liver enzymes, coagulopathy Intubated 05/14/2021 Review of Systems Review of Systems: All systems reviewed & are unremarkable except as noted in HPI and below ROS unobtainable: Yes unobtainable due to endotracheal tube Exam Const: General: comfortable and no acute distress HENMT: Mouth: Yes moist mucous membranes Eyes: Sclera: sclerae normal Pupils: Equal, round a
--- NOTE | 2021-05-16 11:58 | PCDIET ---
ICU Rounding Note: Patient with fair tolerance to Vital 1.2. Infusing at 20mL/hr due to residuals up to 220mL. adding Reglan with plan to advance tube feedings. Last recorded weight is 94.8kg which is down from last review. Bowel Motility: No documented BM. Labs Reviewed: RBC (4.11), Glu (144), Alb (3.0), Mg (2.4) Meds Noted: Propofol (rate of 23.52mL/hr provides 620kcal per day), Protonix, Remdesivir, Vitamin D, Albuterol, Vitamin C, Pulmicort, Zinc Sulfate, Decadron, Fentanyl, Versed Additional Notes: No documented skin breakdown. Following daily in ICU rounds. Assessing/reassessing every 3 days.
[2021-05-16] MEDS: METOCLOPRAMIDE HCL 10 MG/10 ML SOLN UDC 5 MG PO ×3 (12:58→23:52)
[2021-05-16 13:13] LABS: Glucose Point of Care 163 mg/dl (65-105)
[2021-05-16 15:20] LABS: Hepatitis C RNA, Quant PCR <15 IU/mL
[2021-05-16] MEDS: PROPOFOL IV EMULSION 100 ML 20.58 MG IV CONT (15:25)
[2021-05-16] MEDS: INSULIN ASPART (*BKC) 100 UNITS/ML SUB-Q (17:39)
[2021-05-16 17:42] LABS: Glucose Point of Care 238 mg/dl (65-105)
--- NOTE | 2021-05-16 18:09 | PM.IMPN ---
Progress Note: A&P Assessment and Plan (1) Acute respiratory failure with hypoxia: Code(s): J96.01 - Acute respiratory failure with hypoxia Status: Acute Assessment and Plan: hypoxic respiratory failure 2nd to COVID status post intubation 9-7 CMV vent settings, with FiO2 down to 50%, and PEEP of 12 patient in ICU, weaning as tolerated noted that she did receive tocilizumab currently dexamethasone and remdesivir, day 3 of both continue appropriate precautions Echocardiogram pending Noted plan for diuresis based on fluid overload seen on x-ray yesterday, some improvement noted on today's x-ray (2) Pneumonia due to 2019 novel coronavirus: Code(s): U07.1 - COVID-19; J12.82 - Pneumonia due to coronavirus disease 2019 Status: Acute Assessment and Plan: as above (3) Transaminasemia: Code(s): R74.01 - Elevation of levels of liver transaminase levels Status: Acute Assessment and Plan: possibly related to COVID, has only received 1 remdesivir dose thus far Abdominal ultrasound does not show any obvious etiology for transaminitis Hepatitis panel pending, Tylenol level are normal (4) Coagulation test abnormality: Code(s): R79.1 - Abnormal coagulation profile Status: Acute Assessment and Plan: Could be related to liver dysfunction since her LFTs elevated, COVID-19 -patient denies any drug use per prior interviews hepatitis C antibody screen reactive, RNA PCR negative (5) DVT prophylaxis: Code(s): Z29.9 - Encounter for prophylactic measures, unspecified Status: Acute Assessment and Plan: DVT prophylaxis: Lovenox SQ Stress ulcer prophylaxis: Protonix Time Spent With Patient Time with patient: less than 15 minutes Subjective Date/time seen: 05/16/21 18:09 Objective Data Vital Signs Vital Signs: Vital Signs - 24 hr 05/15/21 19:48 05/15/21 19:58 05/15/21 19:59 Temperature Pulse Rate 82 80 78 Respiratory Rate 28 H 26 H 26 H Blood Pressure Pulse Oximetry 05/15/21 20:00 05/15/21 20:08 05/15/21 21:37 Temperature 96.5 F L Pulse Rate 78 72 94 Respiratory Rate 26 H 28 H Blood Pressure 146/98 H Pulse Oximetry 92 94 05/15/21 22:00 05/15/21 22:52 05/15/21 23:09 Temperature Pulse Rate 91 94 88 Respiratory Rate 26 H 28 H Blood Pressure 138/92 H Pulse Oximetry 92 92 05/15/21 23:10 05/15/21 23:11 05/16/21 00:00 Temperature 97.5 F L Pulse Rate 94 90 82 Respiratory Rate 29 H 29 H 26 H Blood Pressure 139/95 H Pulse Oximetry 93 05/16/21 02:00 05/16/21 02:11 05/16/21 02:15 Temperature Pulse Rate 84 82 76 Respiratory Rate 26 H 26 H Blood Pressure 146/94 H Pulse Oximetry 92 93 05/16/21 03:08 05/16/21 03:28 05/16/21 04:00 Temperature 97.8 F Pulse Rate 85 84 84 Respiratory Rate 26 H 26 H 26 H Blood Pressure 146/94 H Pulse Oximetry 93 92 05/16/21 05:05 05/16/21 05:06 05/16/21 06:00 Temperature Pulse Rate 80 82 98 Respiratory Rate 26 H 26 H 26 H Blood Pressure 145/93 H Pulse Oximetry 92 05/16/21 06:29 05/16/21 06:30 05/16/21 06:35 Temperature Pulse Rate 96 95 92 Respiratory Rate 26 H 26 H 26 H Blood Pressure Pulse Oximetry 05/16/21 07:40 05/16/21 07:45 05/16/21 08:00 Temperature 97.9 F Pulse Rate 52 L 68 84 Respiratory Rate 26 H 26 H Blood Pressure 145/97 H Pulse Oximetry 94 94 05/16/21 10:00 05/16/21 10:33 05/16/21 11:35 Temperature 97 F L Pulse Rate 63 60 55 L Respiratory Rate 26 H 26 H Blood Pressure 132/90 136/92 H Pulse Oximetry 92 93 93 05/16/21 12:00 05/16/21 12:45 05/16/21 13:08 Temperature Pulse Rate 84 58 L 54 L Respiratory Rate 26 H Blood Pressure Pulse Oximetry 94 05/16/21 14:00 05/16/21 15:25 05/16/21 16:00 Temperature 97.6 F Pulse Rate 81 51 L 55 L Respiratory Rate 24 H 26 H Blood Pressure 159/100 H 148/93 H Pulse Oximetry 94 96 05/16/21 17:13
[2021-05-16] MEDS: PROPOFOL IV EMULSION 100 ML 17.64 MG IV CONT (20:32)
[2021-05-16 20:43] LABS: SARS-CoV-2 RNA PCR Positive
[2021-05-17] VITALS (37 sets, daily range): BP systolic 118–178; BP diastolic 71–103; PULSE 45–106; RESP 22–26; TEMP 36.2–37.1; O2SAT 95–99
[2021-05-17 00:24] LABS: Glucose Point of Care 197 mg/dl (65-105)
[2021-05-17] MEDS: PROPOFOL IV EMULSION 100 ML 17.64 MG IV CONT ×2 (02:18→07:45)
[2021-05-17] MEDS: ALBUTEROL SULFATE NEB 2.5 MG/0.5 ML INH INHALATION ×4 (02:45→20:39)
[2021-05-17] MEDS: MIDAZOLAM 100MG/NS 100ML(*CRX) 100 MG/100 ML BAG 6 MG IV CONT (03:55)
[2021-05-17 04:34] LABS: Alveolar/Arterial O2 Gradient 251.6 mmHg; Base Excess ABG 1.8 mEq/l (+/-2.0); Carboxyhemoglobin 0.3 % THb (0-2.0); Fractional Inspired Oxygen 55 %; HCO3 ABG 25.1 mEq/l (22.0-26.0); Methemoglobin ABG 0.4 %THb (0-1.5); Oxygen Content ABG 18.9 %vol (16.0-22.0); Oxyhemoglobin 96.7 % THb (90.0-100.0); PCO2 ABG 34.9 mmHg (35.0-45.0); PO2 ABG 101.7 mmHg (80.0-100.0); PO2 FiO2 Ratio Arterial Blood 1.85 %; Reduced Hemoglobin 2.6 %THb (0-5.0); Total Hemoglobin 13.8 g/dL (12.0-18.0); pH ABG 7.474 (7.350-7.450)
[2021-05-17 04:35] LABS: Device VENTILATOR; Modified Allen's Test Pass; Site Drawn LEFT RADIAL
[2021-05-17 04:36] LABS: Arterial Blood Gas PEEP 12 cmH2O; Arterial Blood Gas Tidal Volume 370 ml; Arterial Blood Gas Vent Mode CMV; Arterial Blood Gas Ventilator rate 26 /MIN
[2021-05-17] MEDS: CENTRAL LINE FLUSH 10 ML IV PUSH ×4 (04:58→20:28)
[2021-05-17] MEDS: METOCLOPRAMIDE HCL 10 MG/10 ML SOLN UDC 5 MG PO ×3 (05:00→17:03)
[2021-05-17] MEDS: FENTANYL 2,500MCG/NS250ML(*CRX 2,500 MCG/250 ML BAG 10 MCG IV CONT (05:37)
[2021-05-17 06:03] LABS: Hematocrit 39.8 % (37.0-47.0); Hemoglobin 13.2 g/dL (12.0-15.0); Mean Corpuscular HGB Conc 33.2 g/dl (32-36); Mean Corpuscular Hemoglobin 33.2 pg (26-34); Mean Corpuscular Volume 100.3 fl (80-100); Mean Platelet Volume 11.6 fl (7.4-10.4); Platelet Count Result 396 k/mm3 (150-375); Red Blood Count 3.97 M/mm3 (4.2-5.4); Red Cell Distribution Width 14.9 % (11.5-14.5); White Blood Count 11.9 K/mm3 (4.5-10.0)
[2021-05-17 06:17] LABS: Alanine Aminotransferase 71 U/L (4-35); Albumin Level 2.9 g/dL (3.5-5.1); Alkaline Phosphatase 362 U/L (38-126); Anion Gap 7 mmol/L (8-16); Aspartate Amino Transferase 49 U/L (14-36); Bilirubin,Total 0.7 mg/dL (0.2-1.3); Blood Urea Nitrogen 31 mg/dL (7-17); Calcium 8.5 mg/dL (8.4-10.2); Carbon Dioxide 25 mmol/L (22-30); Chloride 105 mmol/L (98-107); Estimated CRCL calculation 113 ml/min; Estimated Glomerular Filt Rate > 60; Glucose 190 mg/dL (65-110); Magnesium 2.6 mg/dL (1.6-2.3); Phosphorus 2.1 mg/dL (2.5-4.5); Potassium 3.9 mmol/L (3.4-5.0); Sodium 137 mmol/L (137-145)
[2021-05-17] MEDS: ASCORBIC ACID 500 MG TABLET 1000 MG PO (07:43)
[2021-05-17] MEDS: ENOXAPARIN 40 MG/0.4 ML SYRINGE SUB-Q ×2 (07:43→20:28)
[2021-05-17] MEDS: DEXAMETHASONE SOD PHOS INJ 4 MG/ML VIAL 6 MG IV PUSH (07:44)
[2021-05-17] MEDS: CHOLECALCIFEROL 1,000 UNITS TABLET 1000 UNITS PO (07:44)
[2021-05-17] MEDS: MINERAL OIL/WHITE PETROLATUM OINTMENT 1 APPLIC EACH EYE ×2 (07:44→20:28)
[2021-05-17] MEDS: ZINC SULFATE 220 MG CAPSULE PO (07:44)
[2021-05-17] MEDS: PANTOPRAZOLE SODIUM IV 40 MG VIAL IV PUSH (07:45)
[2021-05-17] MEDS: FUROSEMIDE INJ 40 MG/4 ML VIAL IV PUSH (08:10)
[2021-05-17] MEDS: BUDESONIDE RESPULE NEB 0.5 MG/2 ML AMP INHALATION ×2 (09:00→20:39)
[2021-05-17] MEDS: SODIUM PHOSPHATE 20 MM in DEXTROSE 5% IN WATER 250 ML 50 MM IVPB (09:43)
[2021-05-17] MEDS: REMDESIVIR 100 MG/NS 250 ML 100 MG/250 ML BAG 250 MG IVPB (09:49)
--- NOTE | 2021-05-17 10:49 | WPDINTPN ---
Progress Note: A&P Assessment and Plan (1) Acute respiratory failure with hypoxia: Code(s): J96.01 - Acute respiratory failure with hypoxia Status: Acute Assessment and Plan: Acute hypoxic respiratory failure likely related to COVID pneumonia, admitted on 05/13/2021 with severe hypoxia in the ER -patient intubated on 05/14/2021 after failing high-flow therapy and BiPAP -ABGs and chest x-ray reviewed, -patient on low tidal volume strategy, peep of 12, 45% FiO2. I have decreased her PEEP to 10. Respiratory rate changed to 22 -will hold prone ventilation today if patient is able to maintain current oxygen requirement -continue bronchodilators and Pulmicort -echocardiogram reviewed (2) Pneumonia due to 2019 novel coronavirus: Code(s): U07.1 - COVID-19; J12.82 - Pneumonia due to coronavirus disease 2019 Status: Acute Assessment and Plan: COVID positive on 05/01/2021: -presented with increasing shortness of breath, chest x-ray and CTA chest showed bilateral diffuse infiltrates consistent with COVID pneumonia -continue droplet, airborne, contact isolation/precautions -dexamethasone initiated on 05/13/2021 -Remdesivir initiated on 05/13/2021 and will complete today -CRP of 36, LDH 2004. -05/13/2021: Received tocilizumab Monitor inflammatory markers (3) Transaminasemia: Code(s): R74.01 - Elevation of levels of liver transaminase levels Status: Acute Assessment and Plan: Elevated LFTs -could be related to COVID -hepatitis panel showed hepatitis-C antibody reactive, HCV PCR pending -since patient has been taking a lot of Tylenol, will check Tylenol levels, this could also cause the elevated LFTs -Tylenol levels are within normal limits -05/14/2021: Right upper quadrant ultrasound with no etiology of abnormal liver function tests -LFTs trending down. Monitor (4) DVT prophylaxis: Code(s): Z29.9 - Encounter for prophylactic measures, unspecified Status: Acute Assessment and Plan: DVT prophylaxis: Lovenox SQ q.12 hours due to elevated D-dimer (5) Dietary counseling and surveillance: Code(s): Z71.3 - Dietary counseling and surveillance Status: Acute Assessment and Plan: Stress ulcer prophylaxis: Protonix Continue tube feeds Additional Plan Code status: Full code Critical care time spent: 33 minutes This dictation may have been done utilizing a voice recognition system. Attempts have been made to correct errors. However, there may be uncorrected grammatical, spelling, and recognition errors present. Due to a high probability of clinically significant, life threatening deterioration, the patient required my highest level of preparedness to intervene emergently and I personally spent this critical care time directly and personally managing the patient. This critical care time included obtaining a history; examining the patient; pulse oximetry; ordering and review of studies; arranging urgent treatment with development of a management plan; evaluation of patient's response to treatment; frequent reassessment; and discussions with other providers. It was exclusive of separately billable procedures and treating other patients and teaching time. Please see Assessment and Plan section and the rest of the note for further information on patient assessment and treatment Subjective Date/time seen: 05/17/21 10:49 Overnight events reviewed. Afebrile Continues to be on mechanical ventilation. Patient was placed in prone position overnight Continues to be on sedation with fentanyl, propofol and Versed Vitals acceptable Interval history: Reason for consult: Acute hypoxic respiratory failure, 19 pneumonia, elevated liver enzymes, coagulopathy Intubated 05/14/2021 Review of Systems Review of Systems: ROS unobtainable: Yes unobtainable due to endotracheal tube, unobtainable due to medical condition and unobtainable due to mental status Exam
--- NOTE | 2021-05-17 11:13 | PCDIET ---
Nutrition Follow-Up Complete: Nutrition Diagnosis: Inadequate oral intake related to oral intubation as evidenced by NPO status. Nutrition Goal: Patient to meet estimated nutritional needs. Goal met. Patient tolerating Vital 1.2 at 40mL/hr goal rate, per nursing. Residuals 240mL and below. Last recorded weight is 93.7 kg which is down from last review and admission. Bowel Motility: No documented BM. If medically appropriate, would consider medication to promote BM. Labs Reviewed: WBC (11.9), RBC (3.97), Glu (190), BUN (31), Cr (0.6), Alb (2.9), PO4 (2.1), Mg (2.6) Meds Noted: Albuterol, Vitamin C, Pulmicort, Decadron, Fentanyl, Novolog, Reglan, Versed, Protonix, Remdesivir, Sodium Phosphate, Vitamin D, Zinc Sulfate, Lasix, Propofol (rate of 17.64mL/hr provides 465kcal per day) Additional Notes: I/O positive with documented 600mL urine output on 05/16/21. No skin breakdown documented. Follow up every 3 days.
[2021-05-17] MEDS: INSULIN ASPART (*BKC) 100 UNITS/ML SUB-Q ×2 (12:01→17:15)
[2021-05-17] MEDS: PROPOFOL IV EMULSION 100 ML 23.52 MG IV CONT ×3 (12:14→21:29)
[2021-05-17 12:21] LABS: Glucose Point of Care 219 mg/dl (65-105)
[2021-05-17] MEDS: hydrALAZINE HCL 20 MG/ML VIAL IV PUSH (14:11)
[2021-05-17 17:32] LABS: Glucose Point of Care 206 mg/dl (65-105)
[2021-05-17] MEDS: MIDAZOLAM 100MG/NS 100ML(*CRX) 100 MG/100 ML BAG IV CONT (23:59)
[2021-05-18] VITALS (46 sets, daily range): BP systolic 53–129; BP diastolic 26–90; PULSE 60–155; RESP 22–54; TEMP 36.4–38.4; O2SAT 78–98
[2021-05-18] MEDS: PROPOFOL IV EMULSION 100 ML 23.52 MG IV CONT ×4 (01:45→14:43)
[2021-05-18] MEDS: ALBUTEROL SULFATE NEB 2.5 MG/0.5 ML INH INHALATION ×4 (02:52→21:31)
[2021-05-18] MEDS: METOCLOPRAMIDE HCL 10 MG/10 ML SOLN UDC 5 MG PO ×5 (05:09→23:43)
[2021-05-18] MEDS: CENTRAL LINE FLUSH 10 ML IV PUSH ×4 (05:10→20:07)
[2021-05-18] MEDS: FENTANYL 2,500MCG/NS250ML(*CRX 2,500 MCG/250 ML BAG 10 MCG IV CONT (05:34)
[2021-05-18 05:49] LABS: Hematocrit 40.7 % (37.0-47.0); Hemoglobin 13.5 g/dL (12.0-15.0); Mean Corpuscular HGB Conc 33.2 g/dl (32-36); Mean Corpuscular Volume 99.5 fl (80-100); Platelet Count Result 408 k/mm3 (150-375); Red Blood Count 4.09 M/mm3 (4.2-5.4); Red Cell Distribution Width 14.6 % (11.5-14.5); White Blood Count 14.3 K/mm3 (4.5-10.0)
[2021-05-18 06:01] LABS: D Dimer 3.47 ug/mL (<0.48)
[2021-05-18 06:22] LABS: Alveolar/Arterial O2 Gradient 306.6 mmHg; Carboxyhemoglobin 0.2 % THb (0-2.0); Fractional Inspired Oxygen 55 %; HCO3 ABG 24.7 mEq/l (22.0-26.0); Methemoglobin ABG 0.3 %THb (0-1.5); Oxygen Content ABG 15.6 %vol (16.0-22.0); Oxygen Saturation ABG 88.5 % (95.0-100.0); Oxyhemoglobin 86.8 % THb (90.0-100.0); PCO2 ABG 32.6 mmHg (35.0-45.0); Reduced Hemoglobin 12.7 %THb (0-5.0); Total Hemoglobin 12.8 g/dL (12.0-18.0); pH ABG 7.498 (7.350-7.450)
[2021-05-18 06:33] LABS: Alanine Aminotransferase 76 U/L (4-35); Alkaline Phosphatase 336 U/L (38-126); Anion Gap 12 mmol/L (8-16); Aspartate Amino Transferase 55 U/L (14-36); Bilirubin,Total 0.6 mg/dL (0.2-1.3); Blood Urea Nitrogen 29 mg/dL (7-17); CRP 1.9 mg/dL (<1.0); Calcium 8.2 mg/dL (8.4-10.2); Carbon Dioxide 24 mmol/L (22-30); Chloride 104 mmol/L (98-107); Estimated CRCL calculation 135 ml/min; Estimated Glomerular Filt Rate > 60; Glucose 142 mg/dL (65-110); Lactate Dehydrogenase 1003 U/L (313-618); Magnesium 2.1 mg/dL (1.6-2.3); Phosphorus 2.3 mg/dL (2.5-4.5); Potassium 3.6 mmol/L (3.4-5.0); Sodium 140 mmol/L (137-145)
[2021-05-18 06:36] LABS: Device VENTILATOR; Modified Allen's Test Pass; PO2 ABG 49.3 mmHg (80.0-100.0); Site Drawn LEFT RADIAL
[2021-05-18 06:37] LABS: Arterial Blood Gas PEEP 10 cmH2O; Arterial Blood Gas Tidal Volume 370 ml; Arterial Blood Gas Ventilator rate 22 /MIN
[2021-05-18 07:12] LABS: Glucose Point of Care 191 mg/dl (65-105)
[2021-05-18] MEDS: ENOXAPARIN 40 MG/0.4 ML SYRINGE SUB-Q ×2 (09:08→20:06)
[2021-05-18] MEDS: ASCORBIC ACID 500 MG TABLET 1000 MG PO (09:08)
[2021-05-18] MEDS: PANTOPRAZOLE SODIUM IV 40 MG VIAL IV PUSH (09:08)
[2021-05-18] MEDS: ZINC SULFATE 220 MG CAPSULE PO (09:08)
[2021-05-18] MEDS: DEXAMETHASONE SOD PHOS INJ 4 MG/ML VIAL 6 MG IV PUSH (09:08)
[2021-05-18] MEDS: CHOLECALCIFEROL 1,000 UNITS TABLET 1000 UNITS PO (09:08)
[2021-05-18] MEDS: MINERAL OIL/WHITE PETROLATUM OINTMENT 1 APPLIC EACH EYE ×2 (09:09→20:07)
[2021-05-18] MEDS: BUDESONIDE RESPULE NEB 0.5 MG/2 ML AMP INHALATION ×2 (09:18→21:31)
--- NOTE | 2021-05-18 09:58 | PM.IMPN ---
Progress Note: A&P Assessment and Plan (1) Acute respiratory failure with hypoxia: Code(s): J96.01 - Acute respiratory failure with hypoxia Status: Acute Assessment and Plan: Acute hypoxic respiratory failure secondary to COVID pneumonia 05/13 presented with worsening shortness of breath, CTA chest with bilateral diffuse infiltrates consistent with COVID pneumonia Status post intubation 05-14 Continues to be ventilated, management her pulmonary Noted that she did receive tocilizumab 05/13 Continue dexamethasone Remdesivir 5 day course finished Right-sided pneumothorax 05/18: Management per Pulmonary Echocardiogram 05/15: LV systolic function normal, EF estimated > 70%, grade 1 diastolic dysfunction, pulmonary pressure could not be evaluated, no valvular disease, IVC not dilated (2) Pneumonia due to 2019 novel coronavirus: Code(s): U07.1 - COVID-19; J12.82 - Pneumonia due to coronavirus disease 2018 Status: Acute Assessment and Plan: Management as above (3) Transaminasemia: Code(s): R74.01 - Elevation of levels of liver transaminase levels Status: Acute Assessment and Plan: Possibly related to COVID Remdesivir course finished Hepatitis panel showed positive hepatitis-C antibody, already not detectable Abdominal ultrasound does not show any obvious etiology for transaminitis Tylenol level are normal Levels have been stable (4) DVT prophylaxis: Code(s): Z29.9 - Encounter for prophylactic measures, unspecified Status: Acute Assessment and Plan: DVT prophylaxis: Lovenox SQ Additional Plan Stress ulcer prophylaxis: Protonix Code status: Full code Subjective Date/time seen: 05/18/21 09:58 Remains intubated and sedated, currently on 80% FiO2, peep of 10. Propofol and fentanyl for sedation. Urine output yesterday 1.3 L. 275 mL overnight so far. Chest x-ray this morning with right-sided new pneumothorax. Hemodynamically stable. Afebrile. Review of Systems Review of Systems: ROS unobtainable: Yes unobtainable due to endotracheal tube Exam Narrative: Gen: Intubated and sedated Abd: Soft, NT, mild distension Heart: RRR Lungs: Transmitted upper airway sounds Ext: Trace lower extremity edema Objective Data Vital Signs Vital Signs: Vital Signs - 24 hr 05/17/21 10:00 05/17/21 12:00 05/17/21 12:05 Temperature 97.4 F L Pulse Rate 58 L 45 L 55 L Respiratory Rate 26 H 22 H Blood Pressure 164/98 H 175/101 H Pulse Oximetry 99 98 98 05/17/21 12:14 05/17/21 14:00 05/17/21 14:47 Temperature Pulse Rate 88 50 L 57 L Respiratory Rate 22 H 22 H 22 H Blood Pressure 178/103 H Pulse Oximetry 97 05/17/21 14:48 05/17/21 15:00 05/17/21 16:00 Temperature Pulse Rate 61 64 72 Respiratory Rate 23 H 22 H Blood Pressure 118/71 Pulse Oximetry 97 95 05/17/21 17:10 05/17/21 18:00 05/17/21 20:00 Temperature 98.8 F 97.8 F Pulse Rate 68 54 L 55 L Respiratory Rate 22 H 22 H Blood Pressure 133/85 142/94 H Pulse Oximetry 96 97 95 05/17/21 20:40 05/17/21 20:44 05/17/21 20:55 Temperature Pulse Rate 57 L 57 L 62 Respiratory Rate 22 H 22 H Blood Pressure Pulse Oximetry 95 05/17/21 22:00 05/17/21 23:07 05/17/21 23:59 Temperature Pulse Rate 63 57 L 59 L Respiratory Rate 23 H 22 H Blood Pressure 136/92 H Pulse Oximetry 96 95 05/18/21 00:00 05/18/21 01:45 05/18/21 01:51 Temperature 98.2 F Pulse Rate 60 61 62 Respiratory Rate 22 H 22 H Blood Pressure 129/90 Pulse Oximetry 95 05/18/21 02:00 05/18/21 02:50 05/18/21 02:56 Temperature Pulse Rate 63 64 64 Respiratory Rate 22 H 23 H Blood Pressure 126/84 Pulse Oximetry 94 95 05/18/21 03:04 05/18/21 04:00 05/18/21 05:29 Temperature Pulse Rate 68 76 80 Respiratory Rate 23 H 25 H 22 H Blood Pressure 121/84 Pulse Oximetry 94 05/18/21 05:34 05/18/21 06:00 05/18/21 06:15 Temperature Pulse Rate 80 83 84 Respirator
--- NOTE | 2021-05-18 10:19 | W.PM.PROC2 ---
Procedure Note - Detailed Date of Procedure 05/18/21 Pre-op Diagnosis 1.Rt. Pneumothorax while on positive pressure ventilation 2. Acute hypoxic resp failure, COVID Pneumonia Post-op Diagnosis same Procedure Performed Chest tube Placement (tube thoracostomy) 20 Fr. Rt chest tube Surgeon Sanjeev Rodriguez MD Liability Analyst none Anesthesia other (Local with 2% Xylocaine wiht Epi) Indications discovered Rt. pneumothorax on the a.m. chest x-ray for pneumonia and physical therapy Findings normal chest wall anatomy on the side of tube placement. Description of Procedure A standard cath thoracostomy: Time-out was performed with the team and all equipment was confirmed to be present. A previously prepared small pieces of 2 inch cloth tape with 3 arms such that I could tape the tube in place once that was in position. The chest tube placement kit was opened and using sterile coditions I obtained 10 cc of local anesthetic In a 10 cc syringe then connected a 22 g needle. With the patient's arm up above their head on the side of the pneumothorax we carefully prepped the entire lateral chest. A sterile towel was placed below the prepped area. Local anesthetic was infiltrated over the 5th or 6th rib in the anterior axillary line. Following this a small incision was made with a 15 blade knife about an 2.5 cm in size. Following this the 20 Fr. catheter with a internal guide was fed over the catheter and up into the chest to the 15 cm michael. The internal dilator was pulled out as was the wire. The chest tube was left in place. The U-stitch was then used to secure the catheter in place by placing in this our around the tube time it once and then wrapping it around the tube and tying it with 3 knots. Following this the tape was used to hold in place after placing a dressing of Vaseline gauze and a split 2 x 2. Tube was connected to the Pleur-Evac and then the Pleur-evac to 20 cm of suction. Patient tolerated the procedure well. Standard full size tube thoracostomy: I carefully prepped the entire left chest wall with the patient Lying slightly head up and supine. One of the ICU nurses stood on the patient's left side and with his hand rotated the patient's right breast toward to allow me to have good access to the anterior axillary line right side. The arm on the side of chest tube placement was up above the head. Following this using sterile technique we carefully prepped the lateral right chest wall in the axillary area and this was draped off sterilely. Time-out was performed with the team helping me. Following this local anesthetic was infiltrated over the 5th or 6 th rib and an incision was made using an 15 blade knife on that rib and I then tunneled up over the 4th or 5th rib and then using a hemostat penetrated the intercostal space and the parietal pleura. The hemostat was spread and a gush of air was noted. as I spread this further with a larger forceps and my finger more slightly yellowish cloudy fluid came out. Following this the 20 Fr. size chest tube was carefully inserted after placing a finger into the chest cavity and sweepin it around the inside of the nearby chest cavity. I tried to insert the tub posteriorly and cephalad. It was inserted into about the 22 cm michael and then sutured into place with a U shape stitch using an 0 silk which was tied with just 1 knot and then wrapped around the tube and then tied with 3 knots. Vaseline gauze was applied around the tube as dressing, followed by a 3 x 3 split dressing and then 4 pieces of Cloth tape that were cut with 3 arms usinng the center arm of each piece of tape to wrap around the tube to hold it in place. The tube was then connected to Pleur-Evac and the Pleur-Evac to 20 cm of suction. The patient tolerated the procedure well. I followed up on the chest x-ray once the Tech's at taking it and appeared that the pneumothorax was smaller but that the chest tube had gone directly
--- NOTE | 2021-05-18 10:31 | WPDINTPN ---
Progress Note: A&P Assessment and Plan (1) Acute respiratory failure with hypoxia: Code(s): J96.01 - Acute respiratory failure with hypoxia Status: Acute Assessment and Plan: Acute hypoxic respiratory failure likely related to COVID pneumonia, admitted on 05/13/2021 with severe hypoxia in the ER -patient intubated on 05/14/2021 after failing high-flow therapy and BiPAP - 05/18 developed right pneumothorax and right chest tube was placed. Chest tube was placed at-20 cm wall suction -ABGs and chest x-ray reviewed -will advance ET tube by 2 cm -patient on low tidal volume strategy, peep was decreased to 8 before the chest tube but will be increased back to 10 now. Currently on 100% FiO2 which will be weaned down slowly -may need to place back on prone ventilation today if oxygen requirement continues to be high -continue bronchodilators and Pulmicort -echocardiogram reviewed -continue Lasix (2) Pneumonia due to 2019 novel coronavirus: Code(s): U07.1 - COVID-19; J12.82 - Pneumonia due to coronavirus disease 2019 Status: Acute Assessment and Plan: COVID positive on 05/01/2021: -presented with increasing shortness of breath, chest x-ray and CTA chest showed bilateral diffuse infiltrates consistent with COVID pneumonia -continue droplet, airborne, contact isolation/precautions -dexamethasone initiated on 05/13/2021 -Remdesivir initiated on 05/13/2021 and patient has completed a 5 day course -CRP of 36, LDH 2004. -05/13/2021: Received tocilizumab Monitor inflammatory markers which are improving (3) Pneumothorax on right: Code(s): J93.9 - Pneumothorax, unspecified Status: Acute Assessment and Plan: See above (4) Transaminasemia: Code(s): R74.01 - Elevation of levels of liver transaminase levels Status: Acute Assessment and Plan: Elevated LFTs -could be related to COVID -hepatitis panel showed hepatitis-C antibody reactive, HCV PCR pending -since patient has been taking a lot of Tylenol, will check Tylenol levels, this could also cause the elevated LFTs -Tylenol levels are within normal limits -05/14/2021: Right upper quadrant ultrasound with no etiology of abnormal liver function tests -LFTs trending down. Monitor (5) DVT prophylaxis: Code(s): Z29.9 - Encounter for prophylactic measures, unspecified Status: Acute Assessment and Plan: DVT prophylaxis: Lovenox SQ q.12 hours due to elevated D-dimer (6) Dietary counseling and surveillance: Code(s): Z71.3 - Dietary counseling and surveillance Status: Acute Assessment and Plan: Stress ulcer prophylaxis: Protonix Continue tube feeds Additional Plan Code status: Full code Critical care time spent: 30 minutes This dictation may have been done utilizing a voice recognition system. Attempts have been made to correct errors. However, there may be uncorrected grammatical, spelling, and recognition errors present. Due to a high probability of clinically significant, life threatening deterioration, the patient required my highest level of preparedness to intervene emergently and I personally spent this critical care time directly and personally managing the patient. This critical care time included obtaining a history; examining the patient; pulse oximetry; ordering and review of studies; arranging urgent treatment with development of a management plan; evaluation of patient's response to treatment; frequent reassessment; and discussions with other providers. It was exclusive of separately billable procedures and treating other patients and teaching time. Please see Assessment and Plan section and the rest of the note for further information on patient assessment and treatment Subjective Date/time seen: 05/18/21 Patient desaturated this morning with increased oxygen requirement. Chest x-ray showed right pneumothorax. General surgery was consulted for chest tube placement an
[2021-05-18] MEDS: ROCURONIUM BROMIDE 50 MG/5 ML VIAL IV PUSH (11:15)
[2021-05-18] MEDS: POTASSIUM CHLORIDE 20 MEQ PACKET (FOR LIQUID) 40 MEQ FEED TUBE (11:19)
[2021-05-18] MEDS: FUROSEMIDE INJ 40 MG/4 ML VIAL IV PUSH (11:22)
[2021-05-18 12:14] LABS: Glucose Point of Care 190 mg/dl (65-105)
--- NOTE | 2021-05-18 15:08 | PM.CNGS ---
Assessment and Plan Assessment and plan (1) Pneumothorax on right: Onset Date: ~05/18/21 Code(s): J93.9 - Pneumothorax, unspecified Status: Acute Assessment and Plan: This was the reason that I consulted I have recommended the patient have a chest tube placed since she was on positive pressure breathing with the ventilator. ICU staff teen cons consent from her next of kin and gave over the phone permission for permit for right chest tube placement. See op note (2) Acute respiratory failure with hypoxia: Onset Date: ~04/2021 Code(s): J96.01 - Acute respiratory failure with hypoxia Status: Acute Assessment and Plan: patient apparently developed COVID 19 symptoms and then pneumonia see starting gate driver note (3) Pneumonia due to 2019-nCoV: Onset Date: ~04/2021 Code(s): U07.1 - COVID-19; J12.82 - Pneumonia due to coronavirus disease 2019 Status: Acute Assessment and Plan: Continuez supportive care for COVID pneumonia Additional Plan discussed with Dr. Boss , most likely will leave the chest tube in until patient extubated. History of Present Illness Consult details Consult date: 05/18/21 Reason for consult: other ( Development of right pneumothorax while on ventilator assisted breathing) Requesting physician: Ferdinand Boss MD Narrative: this patient is a 50-year-old see [place] female who recently presented to hospital with COVID 19 symptoms and eventually required intubation. Early in the morning of 05/18/2021 patient desaturated and developed increased oxygen requirement. Chest x-ray showed right pneumothorax. General surgery was consulted for chest tube placement and patient had a chest tube placed on the right side. Dr. Boss temporally decreased her PEEP to 8 and increase her FiO2 100% Patient continues to be on sedation Review of Systems Review of Systems: ROS unobtainable: Yes unobtainable due to medical condition [facility] Past Medical History Medical History Gastroesophageal reflux disease Hiatal hernia Surgical History Surgical History History of repair of laceration (01/24/09) Left external auditory canal and tragus, about 4 cm. History of tubal ligation Family History Family History Other Acute myocardial infarction Cancer Diabetes mellitus Social History Social History Social History: Surrogate decision maker: Rhonda Wolff, mother. Code status: Full code. Smoking status: Never smoker Alcohol intake: never Substance use: never Additional living arrangements comments: The patient lives in [place] with her children. Additional occupation/education comments: Works at a local [employer]. Spiritual care concerns: No Meds Home Medications and Allergies Home Medications Medication Instructions Recorded Confirmed Type benzonatate 100 mg PO TID PRN 05/13/21 05/13/21 History Allergies Allergy/AdvReac Type Severity Reaction Status Date / Time No Known Allergies Allergy Unknown Verified 05/13/21 09:44 Vital Signs Vital Signs - 24 hr 05/17/21 16:00 05/17/21 17:10 05/17/21 18:00 Temperature 37.1 C Pulse Rate 72 68 54 L Respiratory Rate 22 H 22 H Blood Pressure 118/71 133/85 Pulse Oximetry 95 96 97 05/17/21 20:00 05/17/21 20:40 05/17/21 20:44 Temperature 36.6 C Pulse Rate 55 L 57 L 57 L Respiratory Rate 22 H 22 H Blood Pressure 142/94 H Pulse Oximetry 95 95 05/17/21 20:55 05/17/21 22:00 05/17/21 23:07 Temperature Pulse Rate 62 63 57 L Respiratory Rate 22 H 23 H Blood Pressure 136/92 H Pulse Oximetry 96 95 05/17/21 23:59 05/18/21 00:00 05/18/21 01:45 Temperature 36.8 C Pulse Rate 59 L 60 61 Respiratory Rate 22 H 22 H 22 H Blood
[2021-05-18] MEDS: INSULIN ASPART (*BKC) 100 UNITS/ML SUB-Q (17:43)
[2021-05-18 17:47] LABS: Glucose Point of Care 232 mg/dl (65-105)
[2021-05-18] MEDS: CISATRACURIUM BESYLATE 200 MG in DEXTROSE 5% 80 ML 8.61 ML IV CONT (20:02)
[2021-05-18] MEDS: CISATRACURIUM BESYLATE 20 MG/10 ML VIAL 10 MG IV PUSH (20:02)
[2021-05-18] MEDS: NOREPINEPHRINE 8 MG/D5W 250 ML 8 MG/250 ML BAG 9.38 MG IV CONT (20:25)
[2021-05-18 20:26] LABS: Alveolar/Arterial O2 Gradient 605.7 mmHg; Base Excess ABG -2.5 mEq/l (+/-2.0); Carboxyhemoglobin 0.5 % THb (0-2.0); Device VENTILATOR; Fractional Inspired Oxygen 100 %; HCO3 ABG 22.4 mEq/l (22.0-26.0); Methemoglobin ABG 0.4 %THb (0-1.5); Modified Allen's Test Pass; Oxygen Content ABG 20.4 %vol (16.0-22.0); Oxygen Saturation ABG 93.2 % (95.0-100.0); Oxyhemoglobin 91.8 % THb (90.0-100.0); PCO2 ABG 39.3 mmHg (35.0-45.0); PO2 FiO2 Ratio Arterial Blood 0.68 %; Reduced Hemoglobin 7.3 %THb (0-5.0); Site Drawn LEFT RADIAL; Total Hemoglobin 15.8 g/dL (12.0-18.0); pH ABG 7.373 (7.350-7.450)
[2021-05-18 20:27] LABS: Arterial Blood Gas PEEP 12 cmH2O; Arterial Blood Gas Tidal Volume 370 ml; Arterial Blood Gas Vent Mode CMV; Arterial Blood Gas Ventilator rate 22 /MIN
[2021-05-18] MEDS: SODIUM CHLORIDE 0.9% IV 500 ML 999 ML IV CONT (20:30)
[2021-05-18] MEDS: MIDAZOLAM 100MG/NS 100ML(*CRX) 100 MG/100 ML BAG 6 MG IV CONT (20:31)
[2021-05-18] MEDS: MIDAZOLAM HCL (*CRX) 2 MG/2 ML VIAL 4 MG IV PUSH ×2 (20:42→21:55)
[2021-05-18] MEDS: PROPOFOL IV EMULSION 100 ML 29.4 MG IV CONT (21:22)
[2021-05-18] MEDS: MORPHINE SULFATE (*CRX) 4 MG/ML INJ IV PUSH (22:01)
[2021-05-18] MEDS: SODIUM CHLORIDE 0.9% IV 1,000 ML 999 ML IV CONT (22:44)
[2021-05-18] MEDS: FENTANYL 2,500MCG/NS250ML(*CRX 2,500 MCG/250 ML BAG 17.5 MCG IV CONT (23:39)
--- NOTE | 2021-05-18 23:42 | PC.NURSE ---
Called [facility] transfer line to inquire about an ECMO bed and staff states that they are at capacity with ECMO at this time.
[2021-05-18] MEDS: VASOPRESSIN INJ 100 UNITS in DEXTROSE 5% 95 ML IV CONT (23:50)
[2021-05-19] VITALS (78 sets, daily range): BP systolic 42–183; BP diastolic 29–121; PULSE 110–159; RESP 20–28; TEMP 36.1–38; O2SAT 69–95
[2021-05-19] MEDS: EPOPROSTENOL SODIUM 0.5 MG VIAL 1 MG INHALATION ×3 (00:06→11:47)
[2021-05-19] MEDS: SODIUM CHLORIDE 0.9% IV 1,000 ML 999 ML IV CONT (00:15)
[2021-05-19 00:26] LABS: Glucose Point of Care 134 mg/dl (65-105)
--- NOTE | 2021-05-19 00:32 | PCRCNOTE ---
Flolan started at 0015. Sp02 95%
[2021-05-19] MEDS: SODIUM BICARBONATE 8.4% 50 MEQ/50 ML SYRINGE 100 MEQ IV PUSH ×3 (00:35→17:15)
[2021-05-19] MEDS: PROPOFOL IV EMULSION 100 ML 29.4 MG IV CONT ×2 (00:48→04:13)
[2021-05-19] MEDS: CISATRACURIUM BESYLATE 200 MG in DEXTROSE 5% 80 ML 14.36 ML IV CONT (01:27)
[2021-05-19] MEDS: EPINEPHrine INJ 1 MG in DEXTROSE 5% IN WATER 250 ML 150.6 MG IV CONT ×2 (03:40→05:21)
[2021-05-19] MEDS: NOREPINEPHRINE 8 MG/D5W 250 ML 8 MG/250 ML BAG 56.25 MG IV CONT (03:46)
[2021-05-19] MEDS: SODIUM BICARBONATE 8.4% 50 MEQ/50 ML SYRINGE 150 MEQ (03:55)
[2021-05-19 04:04] LABS: Alveolar/Arterial O2 Gradient 564.6 mmHg; Base Excess ABG -2.2 mEq/l (+/-2.0); Carboxyhemoglobin 0.3 % THb (0-2.0); Fractional Inspired Oxygen 100 %; HCO3 ABG 24.6 mEq/l (22.0-26.0); Methemoglobin ABG 0.5 %THb (0-1.5); Oxygen Content ABG 18.7 %vol (16.0-22.0); Oxygen Saturation ABG 96.9 % (95.0-100.0); Oxyhemoglobin 95.4 % THb (90.0-100.0); PCO2 ABG 49.9 mmHg (35.0-45.0); PO2 ABG 98.5 mmHg (80.0-100.0); PO2 FiO2 Ratio Arterial Blood 0.99 %; Reduced Hemoglobin 3.8 %THb (0-5.0); Total Hemoglobin 13.9 g/dL (12.0-18.0)
[2021-05-19 04:06] LABS: Device VENTILATOR; Modified Allen's Test Pass; Site Drawn RIGHT RADIAL
[2021-05-19 04:07] LABS: Arterial Blood Gas PEEP 12 cmH2O; Arterial Blood Gas Tidal Volume 370 ml; Arterial Blood Gas Vent Mode CMV; Arterial Blood Gas Ventilator rate 22 /MIN
[2021-05-19 04:28] LABS: Hematocrit 40.6 % (37.0-47.0); Hemoglobin 12.2 g/dL (12.0-15.0); Mean Corpuscular Hemoglobin 32.5 pg (26-34); Mean Corpuscular Volume 108.3 fl (80-100); Mean Platelet Volume 12.6 fl (7.4-10.4); Platelet Count Result 388 k/mm3 (150-375); Red Blood Count 3.75 M/mm3 (4.2-5.4); Red Cell Distribution Width 15.5 % (11.5-14.5); White Blood Count 11.7 K/mm3 (4.5-10.0)
[2021-05-19 04:37] LABS: Lactic Acid Reflex 3.9 mmol/L (0.7-2.1)
[2021-05-19] MEDS: SODIUM CHLORIDE 0.9% IV 1,000 ML 999 ML (04:45)
[2021-05-19] MEDS: EPINEPHrine INJ 1 MG/10 ML SYRINGE IV PUSH ×2 (04:48→06:35)
[2021-05-19 04:57] LABS: Prothrombin Time 13.5 Seconds (11.1-14.7)
[2021-05-19 04:58] LABS: Partial Thromboplastin Time 34.6 SECONDS (22.3-36.8)
[2021-05-19] MEDS: CENTRAL LINE FLUSH 10 ML IV PUSH ×2 (05:02→22:49)
[2021-05-19 05:12] LABS: Alanine Aminotransferase 43 U/L (4-35); Albumin Level 1.9 g/dL (3.5-5.1); Alkaline Phosphatase 187 U/L (38-126); Anion Gap 11 mmol/L (8-16); Aspartate Amino Transferase 46 U/L (14-36); Bilirubin,Total 1.1 mg/dL (0.2-1.3); Blood Urea Nitrogen 35 mg/dL (7-17); Calcium 5.8 mg/dL (8.4-10.2); Carbon Dioxide 21 mmol/L (22-30); Chloride 91 mmol/L (98-107); Estimated CRCL calculation 71 ml/min; Estimated Glomerular Filt Rate 59; Glucose 736 mg/dL (65-110); Potassium 2.6 mmol/L (3.4-5.0); Sodium 123 mmol/L (137-145)
[2021-05-19 05:22] LABS: Band Neutrophils Percent 13 % (0-6); Lymphocytes Absolute Manual 5.26 K/mm3 (1.1-4.5); Monocytes Absolute Manual 0.93 K/mm3 (0.1-0.90); Monocytes Percent Manual 8 % (3-9); Neutrophils Absolute Manual 5.49 K/mm3 (1.7-7.2); Neutrophils Percent Manual 34 % (46-73); Nucleated Red Blood Cells 2 %; Total Cells Counted 100
[2021-05-19 05:23] LABS: Anisocytosis 2+ (NORMAL); Atypical Lymphocytes Present; Platelet Estimate Adequate (Adequate); Poikilocytosis 3+ (NORMAL)
--- NOTE | 2021-05-19 05:41 | PM.CCN ---
Critical Care Event Note Summary Code activated: Yes (But then canceled) Narrative: 05/19/2021 at 3:50 a.m Has evaluating another patient when nursing staff called to notify me the patient was having profound hypoxia and hypotension. Patient's systolic blood pressures had dropped to the 70s despite being on pressor therapy with vasopressin Levophed [place]-Synephrine and epinephrine. Each of the patient's pressors were maxed out. Patient was on ventilator with Nimbex and Flolan in oxygen saturations is were down in the mid 60s. Went to evaluate the patient. The patient received a and of sodium bicarb and epinephrine as the patient appeared be spiraling downward and trying to head off cardiac arrest. Respiratory therapy arrived at bedside and provide it ventilation with bag-valve mask with a PEEP of 20. The patient's oxygen saturations improved to the low 90s. Her blood pressure rebounded up to the 120 systolic. The patient received and 1 L normal saline bolus. Stat chest x-ray was performed and was reviewed. Radiologic interpretation pending. Around 530 in a.m. similar episode occurred. The patient again received a pulse of epinephrine and oxygen saturations improved with bag-valve mask. Radiology interpretation of the chest x-ray demonstrated stable pneumothorax with subq emphysema and worsening bilateral infiltrates. Fat 0635 patient is in pain hypotensive blood pressures in the 60s and oxygen saturations in the low 70s. Family was contacted by nursing staff regarding the patient's worsening condition. The patient's mother has decided to change the patient's code status to DNR. She does not want any further extraordinary measures. Total of 50 minutes spent in critical care activities. This case had a high probability of a clinically significant, sudden, or life threatening deterioration of this patient's condition which required my full and direct attention, intervention and personal management. Critical care time: 30 - 74 mins
[2021-05-19] MEDS: METOCLOPRAMIDE HCL 10 MG/10 ML SOLN UDC 5 MG PO (06:01)
[2021-05-19] MEDS: EPINEPHrine INJ 1 MG in DEXTROSE 5% IN WATER 250 ML 301.2 MG IV CONT (07:05)
[2021-05-19 07:11] LABS: Alanine Aminotransferase 41 U/L (4-35); Albumin Level 1.9 g/dL (3.5-5.1); Alkaline Phosphatase 191 U/L (38-126); Anion Gap 11 mmol/L (8-16); Aspartate Amino Transferase 65 U/L (14-36); Bilirubin,Total 1.1 mg/dL (0.2-1.3); Blood Urea Nitrogen 37 mg/dL (7-17); Carbon Dioxide 20 mmol/L (22-30); Chloride 105 mmol/L (98-107); Estimated CRCL calculation 66 ml/min; Estimated Glomerular Filt Rate 53; Glucose 333 mg/dL (65-110); Potassium 2.6 mmol/L (3.4-5.0); Sodium 136 mmol/L (137-145)
[2021-05-19 07:26] LABS: Reflex Lactic Acid Yes or No Add Lactic
[2021-05-19 07:41] LABS: Glucose Point of Care 192 mg/dl (65-105)
[2021-05-19] MEDS: MIDAZOLAM 100MG/NS 100ML(*CRX) 100 MG/100 ML BAG 8 MG IV CONT ×2 (08:03→19:45)
[2021-05-19] MEDS: CALCIUM CHLOR 1,000MG/100ML NS 1,000 MG/100 ML BAG 100 MG IVPB ×2 (08:04→13:30)
--- NOTE | 2021-05-19 08:22 | PC.NURSE ---
05/19/21 0700: Initiated paralytic at beginning of evening shift and also initiated many blood pressure support medications throughout the course of the night. Flolan initiated during the shift as well. Many conversations with the business planning manager were made throughout the shift with orders to reflect. Hospitalist and melter helper aware and involved in helping care for this patient overnight. Communication with family was made surrounding patient condition and POA made a decision to make patient a DNR.
[2021-05-19] MEDS: CISATRACURIUM BESYLATE 200 MG in DEXTROSE 5% 80 ML 12.92 ML IV CONT ×3 (08:40→17:30)
[2021-05-19] MEDS: POTASSIUM CHLORIDE 20 MEQ PACKET (FOR LIQUID) 40 MEQ FEED TUBE ×2 (09:30→14:16)
[2021-05-19] MEDS: EPINEPHrine INJ 4 MG in DEXTROSE 5% IN WATER 250 ML 76.2 MG IV CONT ×3 (09:30→19:45)
[2021-05-19] MEDS: DEXAMETHASONE SOD PHOS INJ 4 MG/ML VIAL 6 MG IV PUSH (09:32)
[2021-05-19] MEDS: CHOLECALCIFEROL 1,000 UNITS TABLET 1000 UNITS PO (09:32)
[2021-05-19] MEDS: ASCORBIC ACID 500 MG TABLET 1000 MG PO (09:32)
[2021-05-19] MEDS: PANTOPRAZOLE SODIUM IV 40 MG VIAL IV PUSH (09:33)
[2021-05-19] MEDS: MINERAL OIL/WHITE PETROLATUM OINTMENT 1 APPLIC EACH EYE ×2 (09:33→20:09)
[2021-05-19] MEDS: ENOXAPARIN 100 MG/ML SYRINGE SUB-Q ×2 (09:33→20:08)
[2021-05-19] MEDS: ZINC SULFATE 220 MG CAPSULE PO (09:34)
[2021-05-19] MEDS: PROPOFOL IV EMULSION 100 ML 17.64 MG IV CONT ×4 (10:02→22:41)
--- NOTE | 2021-05-19 10:02 | WPDINTPN ---
Progress Note: A&P Assessment and Plan (1) Acute respiratory failure with hypoxia: Code(s): J96.01 - Acute respiratory failure with hypoxia Status: Acute Assessment and Plan: Acute hypoxic respiratory failure likely related to COVID pneumonia, admitted on 05/13/2021 with severe hypoxia in the ER -patient intubated on 05/14/2021 after failing high-flow therapy and BiPAP - 05/18 developed right pneumothorax and right chest tube was placed. Chest tube was placed at-20 cm wall suction -over last 24 hours patient has significantly deteriorated. Currently she is on 15 of PEEP and 100% FiO2. -inhaled Flolan has been added -patient on Nimbex infusion which will be continued -patient was prone last night which will be continued -ABGs and chest x-ray reviewed -patient had persistent small pneumothorax and chest tube is in place to suction -I suspect that deterioration over last 24 hours is likely secondary to his secondary pneumonia as consolidation on the right lower lobe is significantly increased or patient may have had a PE. Her initial CTA was negative for any pulmonary embolism and patient is on DVT prophylaxis but considering she has COVID-19 pneumonia and is at high risk. -at this time patient is too unstable to be transported to CT scanner. I have started her on empiric Lovenox subQ -blood culture and sputum culture have been ordered -empiric vancomycin and cefepime has been started -repeat limited echocardiogram and lower extremity Dopplers ordered but they will be delayed as patient is currently prone -Lasix has been discontinued for now (2) Shock: Code(s): R57.9 - Shock, unspecified Status: Acute Assessment and Plan: Patient has developed shock over last 24 hours. Most likely sepsis secondary to secondary bacterial pneumonia. He is also possibility Patient was given 2.5 L of total fluid overnight. Cautious IV fluids since patient is severely hypoxi She is on Levophed vasopressin epinephrine and [place]-Synephrine She was also given IV bicarb last night IV calcium was ordered for this morning which may help Patient is already on steroids (3) Pneumonia due to 2019 novel coronavirus: Code(s): U07.1 - COVID-19; J12.82 - Pneumonia due to coronavirus disease 2019 Status: Acute Assessment and Plan: COVID positive on 05/01/2021: -presented with increasing shortness of breath, chest x-ray and CTA chest showed bilateral diffuse infiltrates consistent with COVID pneumonia -continue droplet, airborne, contact isolation/precautions -dexamethasone initiated on 05/13/2021 -Remdesivir initiated on 05/13/2021 and patient has completed a 5 day course -CRP of 36, LDH 2003. -05/13/2021: Received tocilizumab Monitor inflammatory markers which are improving (4) Pneumothorax on right: Onset Date: ~05/18/21 Code(s): J93.9 - Pneumothorax, unspecified Status: Acute Assessment and Plan: See above (5) Transaminasemia: Code(s): R74.01 - Elevation of levels of liver transaminase levels Status: Acute Assessment and Plan: Elevated LFTs -could be related to COVID -hepatitis panel showed hepatitis-C antibody reactive, HCV PCR pending -since patient has been taking a lot of Tylenol, will check Tylenol levels, this could also cause the elevated LFTs -Tylenol levels are within normal limits -05/14/2021: Right upper quadrant ultrasound with no etiology of abnormal liver function tests -LFTs trending down. Monitor (6) DVT prophylaxis: Code(s): Z29.9 - Encounter for prophylactic measures, unspecified Status: Acute Assessment and Plan: DVT prophylaxis: Lovenox SQ q.12 therapeutic dose (7) Dietary counseling and surveillance: Code(s): Z71.3 - Dietary counseling and surveillance Status: Acute Assessment and Plan: Stress ulcer prophylaxis: Protonix Continue tube feeds Additional Plan Code status: Patient is now DNR Criti
--- NOTE | 2021-05-19 10:15 | PM.IMPN ---
Progress Note: A&P Assessment and Plan (1) Acute respiratory failure with hypoxia: Code(s): J96.01 - Acute respiratory failure with hypoxia Status: Acute Assessment and Plan: Acute hypoxic respiratory failure secondary to COVID pneumonia 05/13 presented with worsening shortness of breath, CTA chest with bilateral diffuse infiltrates consistent with COVID pneumonia Status post intubation 05/14 Continues to be ventilated, management per pulmonary Noted that she did receive tocilizumab 05/13 Continue dexamethasone Remdesivir 5 day course finished Right-sided pneumothorax 05/18: Chest tube placed 05/18 Echocardiogram 05/15: LV systolic function normal, EF estimated > 70%, grade 1 diastolic dysfunction, pulmonary pressure could not be evaluated, no valvular disease, IVC not dilated 05/19: Significant deterioration overnight, now requiring maximum respiratory support, significant hypotension requiring 4 pressors, broad-spectrum antibiotics, full anticoagulation, prognosis guarded, discussed with family, who opted to change her to DNR. (2) Pneumonia due to 2019 novel coronavirus: Code(s): U07.1 - COVID-19; J12.82 - Pneumonia due to coronavirus disease 2018 Status: Acute Assessment and Plan: Management as above (3) Transaminasemia: Code(s): R74.01 - Elevation of levels of liver transaminase levels Status: Acute Assessment and Plan: Possibly related to COVID Remdesivir course finished Hepatitis panel showed positive hepatitis-C antibody, RNA not detectable Abdominal ultrasound does not show any obvious etiology for elevated liver enzymes Tylenol level are normal Levels have been stable (4) DVT prophylaxis: Code(s): Z29.9 - Encounter for prophylactic measures, unspecified Status: Acute Assessment and Plan: DVT prophylaxis: Lovenox SQ Additional Plan Stress ulcer prophylaxis: Protonix Code status: DNR Subjective Date/time seen: 05/19/21 10:15 Summary: This is a 50-year-old female with no significant past medical history who presented to the emergency department on 05/13 for evaluation of shortness of breath. She tested positive for COVID-19 on 05/01. Reportedly, when she was picked up by EMS EN route to the hospital, her O2 saturations were 48%, and she was having significant difficulty breathing. In the emergency department CTA of the chest showed pulmonary embolism, but extensive ground-glass opacities throughout both lungs consistent COVID pneumonia. She was initiated on dexamethasone, remdesivir, and tocilizumab on 05/13. Initially she was placed on high-flow oxygen with BiPAP as needed. However, unfortunately her respiratory status worsened and she was transferred to the ICU and intubated on 05/14. An echocardiogram was done 05/15 showed left ventricular systolic function normal, EF estimated > 70%, grade 1 diastolic dysfunction, pulmonary pressure could not be evaluated, no valvular disease, IVC not dilated. On 05/18 she was noted to have a right sided pneumothorax. A chest tube was placed. On the evening of 05/18 she had worsening of her respiratory status, progression of her pulmonary infiltrate, she became hypotensive requiring increasing amount of pressor support, up to 4 pressors of norepinephrine, epinephrine, phenylephrine, and vasopressin. She had been maintained on broad-spectrum antibiotics and her anticoagulation was changed from prophylaxis to full anticoagulation. On discussion with the family, she was transition to do not resuscitate status. Interval history: Yesterday evening and overnight, her clinical status deteriorated, she had chest tube placed during the day yesterday, and her FiO2 was increased to 100% temporarily, however she became hypotensive in the evening, reporting multiple pressors, she is currently on norepinephrine, epinephrine, phenylephrine, and vasopressin. She received multiple fluid boluses through the night. She was started on Nimbex and Flolan.
[2021-05-19] MEDS: NOREPINEPHRINE 8 MG/D5W 250 ML 8 MG/250 ML BAG 93.75 MG IV CONT ×6 (11:21→22:46)
[2021-05-19 11:30] LABS: Magnesium 1.5 mg/dL (1.6-2.3); Phosphorus 3.3 mg/dL (2.5-4.5)
[2021-05-19 12:05] LABS: CRP 14.4 mg/dL (<1.0)
--- NOTE | 2021-05-19 12:07 | WPDPROCEDUR ---
Procedures Arterial Line Arterial Line Date: 05/19/21 Arterial Line Time: 11:45 Perfomed Emergently - Given emergent patient conditions, temporal constraints may have precluded informed consent: Yes Time Out Performed: Yes Patient Position: other Street Sweeper Operator Prep: sterile gloves, mask and hat Site: left Site Prep: chlorhexidine Technique used: ultrasound-guided Length: 4.4 cm Closure/Dressing: suture and transparent dressing Patient tolerated procedure: well Complications: none Additional comments: Difficult procedure as patient was in severe shock and on multiple vasopressors. Noninvasive blood pressure monitoring was inaccurate and patient also needed ABGs. Patient was also prone so no access to femoral artery. Unable to feel radial pulse on either side. Used ultrasound and on 1st attempt was unable to advance the catheter over the wire and lost the flash. Procedure re-attempted had a slightly proximal site and was successful. As expected patient blood pressure is low with systolics in 60s bite multiple vasopressors.
[2021-05-19 12:45] LABS: Glucose Point of Care 198 mg/dl (65-105)
[2021-05-19 14:25] LABS: Glucose Point of Care 205 mg/dl (65-105)
[2021-05-19] MEDS: INSULIN ASPART (*BKC) 100 UNITS/ML SUB-Q ×2 (14:44→17:27)
[2021-05-19] MEDS: FENTANYL 2,500MCG/NS250ML(*CRX 2,500 MCG/250 ML BAG 17.5 MCG IV CONT (14:47)
[2021-05-19 16:16] LABS: Hematocrit 48.8 % (37.0-47.0); Hemoglobin 14.8 g/dL (12.0-15.0); Mean Corpuscular HGB Conc 30.3 g/dl (32-36); Mean Corpuscular Volume 108.9 fl (80-100); Mean Platelet Volume 12.6 fl (7.4-10.4); Platelet Count Result 394 k/mm3 (150-375); Red Blood Count 4.48 M/mm3 (4.2-5.4); Red Cell Distribution Width 15.3 % (11.5-14.5); White Blood Count 24.5 K/mm3 (4.5-10.0)
[2021-05-19 16:26] LABS: Alanine Aminotransferase 38 U/L (4-35); Albumin Level 2.2 g/dL (3.5-5.1); Alkaline Phosphatase 161 U/L (38-126); Anion Gap 12 mmol/L (8-16); Aspartate Amino Transferase 49 U/L (14-36); Bilirubin,Total 1.4 mg/dL (0.2-1.3); Blood Urea Nitrogen 43 mg/dL (7-17); Calcium 8.1 mg/dL (8.4-10.2); Carbon Dioxide 19 mmol/L (22-30); Chloride 98 mmol/L (98-107); Estimated CRCL calculation 35 ml/min; Estimated Glomerular Filt Rate 25; Glucose 228 mg/dL (65-110); Magnesium 1.7 mg/dL (1.6-2.3); Potassium 5.2 mmol/L (3.4-5.0); Sodium 129 mmol/L (137-145)
[2021-05-19 16:27] LABS: INR 1.1; Prothrombin Time 14.2 Seconds (11.1-14.7)
[2021-05-19 16:28] LABS: Lactic Acid Reflex 5.3 mmol/L (0.7-2.1)
[2021-05-19 16:34] LABS: Fibrinogen 274 mg/dl (215-510)
[2021-05-19 16:42] LABS: Alveolar/Arterial O2 Gradient 615.5 mmHg; Base Excess ABG -14.8 mEq/l (+/-2.0); Fractional Inspired Oxygen 100 %; HCO3 ABG 16.7 mEq/l (22.0-26.0); Oxygen Content ABG 13.5 %vol (16.0-22.0); Oxyhemoglobin 65.4 % THb (90.0-100.0); PO2 FiO2 Ratio Arterial Blood 0.34 %; Total Hemoglobin 14.7 g/dL (12.0-18.0)
[2021-05-19 16:44] LABS: pH ABG 7.034 (7.350-7.450)
[2021-05-19 16:45] LABS: Oxygen Saturation ABG 41.3 % (95.0-100.0); PCO2 ABG 63.9 mmHg (35.0-45.0); PO2 ABG 33.6 mmHg (80.0-100.0)
[2021-05-19 16:46] LABS: Device VENTILATOR; Site Drawn ARTLINE
[2021-05-19 16:47] LABS: Arterial Blood Gas PEEP 14 cmH2O; Arterial Blood Gas Tidal Volume 370 ml; Arterial Blood Gas Vent Mode CMV; Arterial Blood Gas Ventilator rate 22 /MIN
[2021-05-19] MEDS: ALBUMIN HUMAN 25% 25 GM/100 ML 100 ML IVPB (17:19)
[2021-05-19 17:36] LABS: Glucose Point of Care 213 mg/dl (65-105)
[2021-05-19] MEDS: EPINEPHrine INJ 4 MG in DEXTROSE 5% IN WATER 250 ML 38.1 MG IV CONT (22:43)
[2021-05-20] VITALS (34 sets, daily range): BP systolic 56–168; BP diastolic 36–94; PULSE 72–159; RESP 28–30; TEMP 36.5–37.6; O2SAT 95–100
[2021-05-20] MEDS: EPOPROSTENOL SODIUM 0.5 MG VIAL 1 MG INHALATION ×3 (00:04→12:09)
[2021-05-20 00:29] LABS: Glucose Point of Care 163 mg/dl (65-105)
[2021-05-20] MEDS: METOCLOPRAMIDE HCL 10 MG/10 ML SOLN UDC 5 MG PO ×3 (01:00→13:16)
[2021-05-20] MEDS: ALBUMIN HUMAN 25% 25 GM/100 ML 100 ML IVPB ×3 (01:00→13:15)
[2021-05-20] MEDS: NOREPINEPHRINE 8 MG/D5W 250 ML 8 MG/250 ML BAG 93.75 MG IV CONT ×2 (01:08→03:49)
[2021-05-20] MEDS: EPINEPHrine INJ 4 MG in DEXTROSE 5% IN WATER 250 ML 76.2 MG IV CONT (02:35)
[2021-05-20 05:02] LABS: Alveolar/Arterial O2 Gradient 574.9 mmHg; Base Excess ABG -15.4 mEq/l (+/-2.0); Carboxyhemoglobin 0.3 % THb (0-2.0); Fractional Inspired Oxygen 100 %; HCO3 ABG 13.9 mEq/l (22.0-26.0); Methemoglobin ABG 0.7 %THb (0-1.5); Oxygen Content ABG 17.3 %vol (16.0-22.0); Oxygen Saturation ABG 93.9 % (95.0-100.0); Oxyhemoglobin 95.1 % THb (90.0-100.0); PCO2 ABG 45.9 mmHg (35.0-45.0); PO2 ABG 92.2 mmHg (80.0-100.0); PO2 FiO2 Ratio Arterial Blood 0.92 %; Reduced Hemoglobin 3.9 %THb (0-5.0); Total Hemoglobin 12.9 g/dL (12.0-18.0)
[2021-05-20 05:03] LABS: pH ABG 7.098 (7.350-7.450)
[2021-05-20 05:04] LABS: Arterial Blood Gas Ventilator rate 28 /MIN; Device VENTILATOR; Site Drawn ARTLINE
[2021-05-20 05:05] LABS: Arterial Blood Gas PEEP 16 cmH2O; Arterial Blood Gas Tidal Volume 370 ml; Arterial Blood Gas Vent Mode CMV
[2021-05-20] MEDS: PROPOFOL IV EMULSION 100 ML 17.64 MG IV CONT ×2 (05:42→10:34)
[2021-05-20] MEDS: FENTANYL 2,500MCG/NS250ML(*CRX 2,500 MCG/250 ML BAG 17.5 MCG IV CONT (05:43)
[2021-05-20] MEDS: SODIUM BICARBONATE 8.4% 50 MEQ/50 ML SYRINGE 100 MEQ IV PUSH ×2 (05:49→08:34)
[2021-05-20] MEDS: CISATRACURIUM BESYLATE 200 MG in DEXTROSE 5% 80 ML 8.61 ML IV CONT (05:54)
[2021-05-20] MEDS: CENTRAL LINE FLUSH 10 ML IV PUSH (06:09)
[2021-05-20 06:17] LABS: D Dimer 2.24 ug/mL (<0.48)
[2021-05-20] MEDS: MIDAZOLAM 100MG/NS 100ML(*CRX) 100 MG/100 ML BAG 8 MG IV CONT (06:30)
[2021-05-20] MEDS: NOREPINEPHRINE 8 MG/D5W 250 ML 8 MG/250 ML BAG 75 MG IV CONT ×2 (06:47→10:35)
[2021-05-20] MEDS: VASOPRESSIN INJ 100 UNITS in DEXTROSE 5% 95 ML IV CONT (07:53)
[2021-05-20 08:10] LABS: Hematocrit 39.2 % (37.0-47.0); Hemoglobin 12.2 g/dL (12.0-15.0); Immature Platelet Fraction Pct 24.4 % (0.9-11.2); Mean Corpuscular HGB Conc 31.1 g/dl (32-36); Mean Corpuscular Hemoglobin 33.4 pg (26-34); Mean Corpuscular Volume 107.4 fl (80-100); Mean Platelet Volume 13.2 fl (7.4-10.4); Platelet Count Result 259 k/mm3 (150-375); Red Blood Count 3.65 M/mm3 (4.2-5.4); White Blood Count 38.9 K/mm3 (4.5-10.0)
[2021-05-20 08:22] LABS: Alanine Aminotransferase 99 U/L (4-35); Albumin Level 2.9 g/dL (3.5-5.1); Alkaline Phosphatase 149 U/L (38-126); Anion Gap 21 mmol/L (8-16); Aspartate Amino Transferase 511 U/L (14-36); Bilirubin,Total 4.6 mg/dL (0.2-1.3); Blood Urea Nitrogen 47 mg/dL (7-17); Calcium 6.6 mg/dL (8.4-10.2); Carbon Dioxide 15 mmol/L (22-30); Chloride 89 mmol/L (98-107); Glucose 135 mg/dL (65-110); Potassium 5.6 mmol/L (3.4-5.0); Sodium 125 mmol/L (137-145)
[2021-05-20 08:24] LABS: Lactic Acid Reflex 7.4 mmol/L (0.7-2.1)
[2021-05-20 08:30] LABS: Estimated CRCL calculation 28 ml/min; Estimated Glomerular Filt Rate 19
[2021-05-20] MEDS: SODIUM BICARBONATE 8.4% 150 MEQ in WATER, STERILE FOR INJECTION 950 ML 50 MEQ IV CONT (08:46)
[2021-05-20] MEDS: ASCORBIC ACID 500 MG TABLET 1000 MG PO (08:47)
[2021-05-20] MEDS: ENOXAPARIN 100 MG/ML SYRINGE SUB-Q (08:48)
[2021-05-20] MEDS: MINERAL OIL/WHITE PETROLATUM OINTMENT 1 APPLIC EACH EYE (08:48)
[2021-05-20] MEDS: DEXAMETHASONE SOD PHOS INJ 4 MG/ML VIAL 6 MG IV PUSH (08:48)
[2021-05-20] MEDS: CHOLECALCIFEROL 1,000 UNITS TABLET 1000 UNITS PO (08:48)
[2021-05-20] MEDS: PANTOPRAZOLE SODIUM IV 40 MG VIAL IV PUSH (08:48)
[2021-05-20] MEDS: ZINC SULFATE 220 MG CAPSULE PO (08:49)
[2021-05-20 09:13] LABS: Anisocytosis 1+ (NORMAL); Band Neutrophils Percent 12 % (0-6); Giant Platelets Present; Large Platelets Present; Lymphocytes Absolute Manual 8.16 K/mm3 (1.1-4.5); Metamyelocytes Percent 50 %; Monocytes Absolute Manual 2.33 K/mm3 (0.1-0.90); Monocytes Percent Manual 6 % (3-9); Myelocytes Percent 4 %; Neutrophils Absolute Manual 5.05 K/mm3 (1.7-7.2); Neutrophils Percent Manual 1 % (46-73); Platelet Estimate Adequate (Adequate); Promyelocytes Percent 6 %; Total Cells Counted 100
[2021-05-20 09:14] LABS: Atypical Lymphocytes Present; Microcytosis 1+ (NORMAL); Poikilocytosis 1+ (NORMAL)
[2021-05-20 09:50] LABS: CRP > 45.0 mg/dL (<1.0)
[2021-05-20 10:03] LABS: Lactate Dehydrogenase 9136 U/L (313-618)
[2021-05-20 10:45] LABS: Ferritin > 2000.00 ng/mL (6.24-137)
[2021-05-20 10:46] LABS: Glucose Point of Care 140 mg/dl (65-105)
[2021-05-20 11:04] LABS: Reflex Lactic Acid Yes or No Add Lactic
--- NOTE | 2021-05-20 11:22 | PCDIET ---
ICU Rounding Note: Tube feedings on hold due to hemodynamic instability. Last recorded weight is 98.3kg which is up from last review. +I/O. Urine output decreased. Bowel Motility: Last documented BM on 05/19/21 x 1. Labs Reviewed: Glu (135), BUN (47), Cr (2.70), K (5.6), Na (125), Alb (2.9), Ebony Ca (7.48) Meds Noted: KCl, Water/150mEq Sodium Bicarbonate at 50mL/hr, Calcium Chloride, Vitamin D, Zinc Sulfate, Albumin, Albuterol, Vitamin C, Pulmicort, Vancomycin, Maxipime, Nimbex, Decadron, Vasopressin, Flolan, Fentanyl, Lasix, Apresoline, Aspart, Reglan, Versed, Levophed, Protonix, Phenylephrine, Propofol (rate of 17.64mL/hr provides 465kcal per day) Additional Notes: No documented pressure ulcers. pH low. Lactic acid increasing. Following daily in ICU rounds. Assessing/reassessing every Thursday/Thursday.
--- NOTE | 2021-05-20 11:55 | WPDINTPN ---
Progress Note: A&P Assessment and Plan (1) Acute respiratory failure with hypoxia: Code(s): J96.01 - Acute respiratory failure with hypoxia Status: Acute Assessment and Plan: Acute hypoxic respiratory failure likely related to COVID pneumonia, admitted on 05/13/2021 with severe hypoxia in the ER -patient intubated on 05/14/2021 after failing high-flow therapy and BiPAP - 05/18 developed right pneumothorax and right chest tube was placed. Chest tube was placed at-20 cm wall suction -patient is a PEEP of 16, FiO2 of 100%. Will wean PEEP to 14 -continue inhaled Flolan -patient on Nimbex infusion which will be continued -patient was prone last night which will be continued -05/20: Chest x-ray does not show a pneumothorax but extensive bilateral progression of the pneumonia/edema, patient has subcutaneous emphysema -patient had persistent small pneumothorax and chest tube is in place to suction -I suspect that deterioration is likely secondary to his secondary pneumonia as consolidation on the right lower lobe is significantly increased or patient may have had a PE. Her initial CTA was negative for any pulmonary embolism and patient is on DVT prophylaxis but considering she has COVID-19 pneumonia and is at high risk. -at this time patient is too unstable to be transported to CT scanner. Continue empiric therapeutic Lovenox subQ -05/19 blood cultures growing Gram-positive cocci in clusters, identification pending -empiric vancomycin and cefepime (initiated on 05/19/2021) -repeat limited echocardiogram and lower extremity Dopplers ordered but they will be delayed as patient is currently prone -Lasix has been discontinued for now (2) Shock: Code(s): R57.9 - Shock, unspecified Status: Acute Assessment and Plan: Patient has developed shock over last 24 hours. Most likely sepsis secondary to secondary bacterial pneumonia. PE could also be a probability given she could be thrombogenic due to COVID-19 -patient has received significant amount of fluid from her medications -she is currently on maximum doses of Levophed, [place]-Synephrine and vasopressin. Epinephrine is off -she is in severe metabolic acidosis with the lactic acid level of 7.4, has been receiving multiple doses of IV bicarb pushes -started on bicarb infusion at 50 mL/hour -Patient is already on steroids (3) Pneumonia due to 2019 novel coronavirus: Code(s): U07.1 - COVID-19; J12.82 - Pneumonia due to coronavirus disease 2019 Status: Acute Assessment and Plan: COVID positive on 05/01/2021: -presented with increasing shortness of breath, chest x-ray and CTA chest showed bilateral diffuse infiltrates consistent with COVID pneumonia -continue droplet, airborne, contact isolation/precautions -dexamethasone initiated on 05/13/2021 -Remdesivir initiated on 05/13/2021 and patient has completed a 5 day course -CRP of 36, LDH 2003. -05/13/2021: Received tocilizumab Monitor inflammatory markers which are improving (4) Pneumothorax on right: Onset Date: ~05/18/21 Code(s): J93.9 - Pneumothorax, unspecified Status: Acute Assessment and Plan: See above (5) Transaminasemia: Code(s): R74.01 - Elevation of levels of liver transaminase levels Status: Acute Assessment and Plan: Now significantly elevated LFTs likely related to septic shock/shock liver -likely related to hypotension, septic shock, decreased perfusion to the liver -patient is on maximum doses of 3 pressors -upon admission patient to the ICU patient's LFTs were elevated which could have been related to COVID-19 -hepatitis panel showed hepatitis-C antibody reactive, HCV PCR pending -since patient has been taking a lot of Tylenol, will check Tylenol levels, this could also cause the elevated LFTs -Tylenol levels are within normal limits -05/14/2021: Right upper quadrant ultrasound with no etiology of abnormal liver function tests (6) DVT pr
[2021-05-20] MEDS: MORPHINE SULFATE INJ (*CRX) 10 MG/ML AMP 5 MG IV PUSH (15:11)
[2021-05-20] MEDS: LORazepam INJ (*CRX) 2 MG/ML VIAL IV PUSH (15:11)
[2021-05-20 16:22] LABS: Magnesium 1.7 mg/dL (1.6-2.3); Phosphorus 8.8 mg/dL (2.5-4.5)
--- NOTE | 2021-05-20 18:13 | P.DN_ITS ---
Discharge Summary Date and Time Date of : 05/20/21 Time of : 15:30 Provider Pronounced By: Cyndi Pedro RN and Olinda Schroeder RN Probable Cause of Probable Cause of : Respiratory failure due to COVID 19 pneumonia Summary Hospital Course: This is a 50-year-old female with no significant past medical history who presented to the emergency department on 05/13 for evaluation of shortness of breath. She tested positive for COVID-19 on 05/01. Reportedly, when she was picked up by EMS EN route to the hospital, her O2 saturations were 48%, and she was having significant difficulty breathing. In the emergency department CTA of the chest showed pulmonary embolism, but extensive ground- glass opacities throughout both lungs consistent COVID pneumonia. She was initiated on dexamethasone, remdesivir, and tocilizumab on 05/13. Initially she was placed on high-flow oxygen with BiPAP as needed. However, unfortunately her respiratory status worsened and she was transferred to the ICU and intubated on 05/14. An echocardiogram was done 05/15 showed left ventricular systolic function normal, EF estimated > 70%, grade 1 diastolic dysfunction, pulmonary pressure could not be evaluated, no valvular disease, IVC not dilated. On 05/18 she was noted to have a right sided pneumothorax. A chest tube was placed. On the evening of 05/18 she had worsening of her respiratory status, progression of her pulmonary infiltrate, she became hypotensive requiring increasing amount of pressor support, up to 4 pressors of norepinephrine, epinephrine, phenylephrine, and vasopressin. She had been maintained on broad-spectrum antibiotics and her anticoagulation was changed from prophylaxis to full anticoagulation. On discussion with the family, she was transition to do not resuscitate status. Interval history: Yesterday evening and overnight, her clinical status deteriorated, she had chest tube placed during the day yesterday, and her FiO2 was increased to 100% temporarily, however she became hypotensive in the evening, reporting multiple pressors, she is currently on norepinephrine, epine phrine, phenylephrine, and vasopressin. She received multiple fluid boluses through the night. She was started on Nimbex and Flolan. She was placed in prone position which she continues to be in. Multiple other events noted. Ultimately the family was contacted and she was transitioned to DNR by her family. She was was transitioned on comfort measures at the request of family on 05/20/21 and peacefully. Additional Data Confirmation of as documented by pronouncing clinician: Pupillary Reflex, Palpable Pulses, Response to Stimuli, Heart Tones and Breath Sounds Name of Provider Notified: Dr. 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
== END 2021-05-20 15:30 | disposition expired | DRG 130 ==
LOC: ANHED 09:55 → ANHICU 13:35
PROVIDERS: Internal Medicine; Physician Assistant; Admitting Provider Internal Medicine; Emergency Provider Emergency Medicine; PCP Internal Medicine Gastroenterology; Visit Provider Internal Medicine Nephrology
DX: U07.1 COVID-19 (principal); R19.7 Diarrhea, unspecified; Z66 Do not resuscitate; Z51.5 Encounter for palliative care; R11.0 Nausea; R53.1 Weakness; K21.9 Gastro-esophageal reflux disease without esophagitis; K44.9 Diaphragmatic hernia without obstruction or gangrene; J12.82 Pneumonia due to coronavirus disease 2019; J96.01 Acute respiratory failure with hypoxia; R03.0 Elevated blood-pressure reading, without diagnosis of hypertension; R79.1 Abnormal coagulation profile; R74.01 Elevation of levels of liver transaminase levels; J15.9 Unspecified bacterial pneumonia; A41.9 Sepsis, unspecified organism; R65.21 Severe sepsis with septic shock; I26.99 Other pulmonary embolism without acute cor pulmonale; J94.8 Other specified pleural conditions; K72.00 Acute and subacute hepatic failure without coma; E87.2 Acidosis; J95.811 Postprocedural pneumothorax; T81.82XA Emphysema (subcutaneous) resulting from a procedure, initial encounter; Y84.8 Other medical procedures as the cause of abnormal reaction of the patient, or of later complication, without mention of misadventure at the time of the procedure; Y82.8 Other medical devices associated with adverse incidents; Y92.230 Patient room in hospital as the place of occurrence of the external cause
CPT/HCPCS: 31500; 36415; 36569; 36600; 71045; 71275; 76705; 80053; 80074; 80076; 80307; 82375; 82728; 82805; 82948; 83050; 83605; 83615; 83735; 84100; 84145; 85025; 85027; 85049; 85055; 85380; 85384; 85610; 85730; 86140; 87040; 87070; 87086; 87147; 87186; 87205; 87522; 93005; 93306; 94002; 94003; 94640; 94660; 96365; 96375; 99285; A9270; C1729; C1751; C9113; C9803; J0131; J0171; J0360; J0692; J1100; J1650; J1815; J1940; J2060; J2250; J2270; J2370; J2704; J3010; J3262; J3370; J3480; J7030; J7040; J7060; P9047; Q9967; U0003; U0005